=== PATIENT | male | born 1965 | race Caucasian/White ===

== ENCOUNTER 2023-10-11 04:52 | Inpatient (IN) | payer OTHER, SELFPAY ==
[2023-10-11] VITALS (37 sets, daily range): BP systolic 10–126; BP diastolic 51–87; BMI 26.8; BMI 26.7
--- NOTE | 2023-10-11 02:06 | ED.GENMED ---
History of Present Illness
<Lexus Tatum MD - Last Filed: 10/11/23 02:42>
General
Chief Complaint: Abdominal Pain
Source: patient
Exam Limitations: none
Time Seen by Provider: 10/11/23 01:53
Nursing documentation reviewed up to this point in time: agreed with
History of Present Illness
History of Present Illness:
The patient is a pleasant 58-year-old man with a past medical history of diverticulosis who presents with 1 day of diffuse abdominal pain, worse in his lower abdomen, as well as pain in his urethra. Patient reports that he had very similar symptoms
about a month ago when he was admitted to [facility] and treated with IV antibiotics for acute diverticulitis. Patient reports that at that time, he had frequent bladder scans done and very little urine was in his bladder. They were unsure
why he was having urethral symptoms during the course of his acute diverticulitis. Patient reports that about a year ago he had a bout of diverticulitis.
Past History
<Lexus Tatum MD - Last Filed: 10/11/23 02:42>
Past History
ED Past Medical History: Other (Diverticulosis, diverticulitis)
ED Past Surgical History: Orthopedic and Other (Hernia repair)
Social History
Tobacco: Non-smoker
Alcohol: Other
Drug: None
Personal:
Living: with family
Employment: Other
Family History
Family History: Other
Review of Systems
<Lexus Tatum MD - Last Filed: 10/11/23 02:42>
Review of Systems
Allergies reviewed?: Yes
All Other Systems: ROS reviewed and negative except as documented in HPI and ROS
Constitutional: Reports no symptoms
EENT: Reports no symptoms
Respiratory: Reports no symptoms
Cardiac: Reports no symptoms
ABD/GI: Reports abdominal pain and nausea
: Reports dysuria and urgency
Musculoskeletal: Reports no symptoms
Skin: Reports no symptoms
Neurological: Reports no symptoms
Endocrine: Reports no symptoms
Hematologic/Lymphatic: Reports no symptoms
Psychiatric: Reports no symptoms
Phy Exam
<Lexus Tatum MD - Last Filed: 10/11/23 02:42>
Physical Exam
Physical Exam:
Physical Exam
General: Patient appears flushed and uncomfortable but is conversational
Neck: supple. no meningeal signs. normal posterior pharynx
Heart: s1/s2 regular rate and rhythm, no murmur. equal radial pulses.
Lungs: no acute respiratory distress. clear bilaterally
Abdomen: Mildly distended. Diffusely tender. No pulsatile mass.
Neuro: alert and oriented. no focal neurological deficits
Skin: no rash
Psychiatric: well kept. interactive and cooperative
Extremities: no edema. no calf tenderness. negative homans. good distal pulses
Course
<Lexus Tatum MD - Last Filed: 10/11/23 02:42>
Orders/Labs/Results
Orders:
Orders
10/11/23 01:44
Complete Blood Count/With Diff Urgent
Comprehensive Metabolic Panel Urgent
Lipase Urgent
10/11/23 02:05
Urinalysis Reflex To Culture Urgent
Acetaminophen [Tylenol] 1,000 mg PO NOW STA
Morphine Sulfate 4 mg IV NOW STA
Ondansetron Injectable [Zofran] 4 mg IV NOW STA
10/11/23 02:06
0.9% Sodium Chloride 1000 ml [Nss] 1,000 ml IV BOLUS
10/11/23 02:38
CT Abd/pelvis W Iv Cont Urgent
Comment:
Reason For Exam: lower ab pain, urethral spasms
10/11/23 03:17
HYDROmorphone [Dilaudid] 1 mg IV NOW STA
10/11/23 03:21
Piperacillin/Tazo 3.375 Gram [Zosyn] 3.375 gram in 50 ml IV NOW
10/11/23 04:38
Admit/Transfer Patient As Directed
Co-Sign Provider:
Level of Care: Inpatient admission
Assign to:: IMU- Intermediate Care
Physician / Group: Jayden
Diagnosis: Perforated Diverticulitis
Reason for Hospitalization: Perforated Diverticulitis
Expected length of stay greater than two midnights?: Yes
ELOS- Estimated Length of Stay in days: 3
I certify the patient meets the requirements for IP care: Yes
PRN Pain Medication Management As Directed
May give lesser potent ordered pain med per pt: Yes
preference::
Protocol:: Medication orders for pain may be administered in a
manner that supports deferring to patient preference
when the pt is:
- Requesting an ordered lesser potent pain medication.
Least to most potent pain medications are defined
as: acetaminophen < NSAID < tramadol < opioids
(morphine, oxycodone, hydromorphone).
- Requesting a lesser dose of the same medication IF
ORDERED.
- Requesting a less intrusive route of administration
if both routes are prescribed by the provider (PO <
IV).
10/11/23 04:39
Code Status As Directed
Resuscitation Status: Full Code
10/11/23 04:41
HYDROmorphone [Dilaudid] 1 mg IV NOW STA
10/11/23 05:41
0.9% Sodium Chloride 1000 ml [Nss] 1,000 ml IV 150 mls/hr
Acetaminophen [Tylenol] 650 mg PO Q4HPRN PRN
HYDROmorphone [Dilaudid] 0.5 mg IV Q4HPRN PRN
Ondansetron Injectable [Zofran] 4 mg IV Q6HPRN PRN
10/11/23 05:41
SURGICAL CONSULT Urgent
Consulting Provider: Matty Guillen
Was physician already notified: Yes
Reason for consult: Perforated Diverticulitis
Activity As Directed
Activity Level: Ambulate
With Assistance
Bladder Scan As Directed
Follow Bladder Retention/Intermittent Cath Algorithm?: Yes
PRN if no void in __ hours: 6
Frequency: Per Retention Algorithm
If Bladder Scan Result >: 400
then:: Straight cath
I/O [Intake/ Output] As Directed
Frequency: Per unit guidelines
Pneumatic Compression Sleeves As Directed
Type: Knee high
Straight Cath As Directed
Frequency: Per Retention Algorithm
Additional Instructions: straight cath as needed per acute urinary retention algorithm for 24 hrs
Additional Instructions: for bladder scan greater than 400 mL
Vital Signs As Directed
Frequency: Per unit guidelines
Oxygen Therapy [O2 Therapy] [RESP] Routine
Titrate/Wean O2 to maintain O2 sat greater than (%): 94
DX Deep Vein Thrombosis Video Routine
10/11/23 Breakfast
NPO
Allow oral meds: Yes
Allow clear liquids: Sips of Clears
10/11/23 06:06
Basic Metabolic Panel IN AM
Complete Blood Count/No Diff IN AM
10/11/23 08:00
Pantoprazole [Protonix IV] 40 mg IV DAILY
10/11/23 10:00
Piperacillin/Tazo 3.375 Gram [Zosyn] 3.375 gram in 50 ml IV Q6H
Abnormal Lab Results
10/11/23
01:44
WBC 12.7 H 10^3/uL
(4.8-10.8)
MCH 31.1 H pg
(27.0-31.0)
Absolute Neuts (auto) 11.5 H 10^3/uL
(1.4-6.5)
Absolute Lymphs (auto) 0.4 L 10^3/uL
(1.2-3.4)
Absolute Monos (auto) 0.8 H 10^3/uL
(0.1-0.6)
Neutrophils % 90.2 H %
(42.2-75.2)
Lymphocytes % 3.1 L %
(20.5-51.1)
Chloride 108 H mmol/L
(98-107)
Glucose 145 H mg/dl
(70-99)
10/11/23 01:44
10/11/23 01:44
Vital Signs
Initial and Last Documented VS:
Initial Vital Signs
Temp Pulse Resp BP Pulse Ox
100.7 F H 109 20 112/87 98
10/11/23 01:35 10/11/23 01:35 10/11/23 01:35 10/11/23 01:35 10/11/23 01:35
Last Documented Vital Signs
Temp Pulse Resp BP Pulse Ox
100.7 F H 80 13 93/58 93
10/11/23 01:35 10/11/23 06:45 10/11/23 06:45 10/11/23 06:06 10/11/23 06:45
<Noah Sanz, DO - Last Filed: 10/11/23 06:55>
Orders/Labs/Results
Orders:
Orders
10/11/23 01:44
Complete Blood Count/With Diff Urgent
Comprehensive Metabolic Panel Urgent
Lipase Urgent
10/11/23 02:05
Urinalysis Reflex To Culture Urgent
Acetaminophen [Tylenol] 1,000 mg PO NOW STA
Morphine Sulfate 4 mg IV NOW STA
Ondansetron Injectable [Zofran] 4 mg IV NOW STA
10/11/23 02:06
0.9% Sodium Chloride 1000 ml [Nss] 1,000 ml IV BOLUS
10/11/23 02:38
CT Abd/pelvis W Iv Cont Urgent
Comment:
Reason For Exam: lower ab pain, urethral spasms
10/11/23 03:17
HYDROmorphone [Dilaudid] 1 mg IV NOW STA
10/11/23 03:21
Piperacillin/Tazo 3.375 Gram [Zosyn] 3.375 gram in 50 ml IV NOW
10/11/23 04:38
Admit/Transfer Patient As Directed
Co-Sign Provider:
Level of Care: Inpatient admission
Assign to:: IMU- Intermediate Care
Physician / Group: Jayden
Diagnosis: Perforated Diverticulitis
Reason for Hospitalization: Perforated Diverticulitis
Expected length of stay greater than two midnights?: Yes
ELOS- Estimated Length of Stay in days: 3
I certify the patient meets the requirements for IP care: Yes
PRN Pain Medication Management As Directed
May give lesser potent ordered pain med per pt: Yes
preference::
Protocol:: Medication orders for pain may be administered in a
manner that supports deferring to patient preference
when the pt is:
- Requesting an ordered lesser potent pain medication.
Least to most potent pain medications are defined
as: acetaminophen < NSAID < tramadol < opioids
(morphine, oxycodone, hydromorphone).
- Requesting a lesser dose of the same medication IF
ORDERED.
- Requesting a less intrusive route of administration
if both routes are prescribed by the provider (PO <
IV).
10/11/23 04:39
Code Status As Directed
Resuscitation Status: Full Code
10/11/23 04:41
HYDROmorphone [Dilaudid] 1 mg IV NOW STA
10/11/23 05:41
0.9% Sodium Chloride 1000 ml [Nss] 1,000 ml IV 150 mls/hr
Acetaminophen [Tylenol] 650 mg PO Q4HPRN PRN
HYDROmorphone [Dilaudid] 0.5 mg IV Q4HPRN PRN
Ondansetron Injectable [Zofran] 4 mg IV Q6HPRN PRN
10/11/23 05:41
SURGICAL CONSULT Urgent
Consulting Provider: Matty Guillen
Was physician already notified: Yes
Reason for consult: Perforated Diverticulitis
Activity As Directed
Activity Level: Ambulate
With Assistance
Bladder Scan As Directed
Follow Bladder Retention/Intermittent Cath Algorithm?: Yes
PRN if no void in __ hours: 6
Frequency: Per Retention Algorithm
If Bladder Scan Result >: 400
then:: Straight cath
I/O [Intake/ Output] As Directed
Frequency: Per unit guidelines
Pneumatic Compression Sleeves As Directed
Type: Knee high
Straight Cath As Directed
Frequency: Per Retention Algorithm
Additional Instructions: straight cath as needed per acute urinary retention algorithm for 24 hrs
Additional Instructions: for bladder scan greater than 400 mL
Vital Signs As Directed
Frequency: Per unit guidelines
Oxygen Therapy [O2 Therapy] [RESP] Routine
Titrate/Wean O2 to maintain O2 sat greater than (%): 94
DX Deep Vein Thrombosis Video Routine
10/11/23 Breakfast
NPO
Allow oral meds: Yes
Allow clear liquids: Sips of Clears
10/11/23 06:06
Basic Metabolic Panel IN AM
Complete Blood Count/No Diff IN AM
10/11/23 08:00
Pantoprazole [Protonix IV] 40 mg IV DAILY
10/11/23 10:00
Piperacillin/Tazo 3.375 Gram [Zosyn] 3.375 gram in 50 ml IV Q6H
Abnormal Lab Results
10/11/23
01:44
WBC 12.7 H 10^3/uL
(4.8-10.8)
MCH 31.1 H pg
(27.0-31.0)
Absolute Neuts (auto) 11.5 H 10^3/uL
(1.4-6.5)
Absolute Lymphs (auto) 0.4 L 10^3/uL
(1.2-3.4)
Absolute Monos (auto) 0.8 H 10^3/uL
(0.1-0.6)
Neutrophils % 90.2 H %
(42.2-75.2)
Lymphocytes % 3.1 L %
(20.5-51.1)
Chloride 108 H mmol/L
(98-107)
Glucose 145 H mg/dl
(70-99)
10/11/23 01:44
10/11/23 01:44
Vital Signs
Initial and Last Documented VS:
Initial Vital Signs
Temp Pulse Resp BP Pulse Ox
100.7 F H 109 20 112/87 98
10/11/23 01:35 10/11/23 01:35 10/11/23 01:35 10/11/23 01:35 10/11/23 01:35
Last Documented Vital Signs
Temp Pulse Resp BP Pulse Ox
100.7 F H 80 13 93/58 93
10/11/23 01:35 10/11/23 06:45 10/11/23 06:45 10/11/23 06:06 10/11/23 06:45
<Lexus Tatum MD - Last Filed: 10/11/23 02:42>
MDM/Problems Addressed
Differential Diagnosis Includes:
Acute diverticulitis with perforation, acute diverticulitis with abscess, small bowel obstruction, infected kidney stone
MDM/Problems Addressed:
Patient presents with acute abdominal pain, urgency, frequency and fever
Chronic conditions affecting care:
Diverticulosis
Acute Exacerbation and/or Progression of Chronic Illness:
Patient may have acute exacerbation of his diverticulitis given that he has diverticulosis
<Noah Sanz DO - Last Filed: 10/11/23 06:55>
MDM/Problems Addressed
MDM/Problems Addressed:
Patient presents with acute abdominal pain, urgency, frequency and fever
Perforated viscus, acute diverticulitis
<Lexus Tatum MD - Last Filed: 10/11/23 02:42>
*Pulse Oximetry
Patient hypoxic: no
Data Reviewed
Review of Other/Old Records Reveals: Testing (Normal cardiac echo 2020)
Source: patient and spouse
<Noah Sanz DO - Last Filed: 10/11/23 06:55>
*Radiology
Radiology exam reviewed: preliminary read by ED provider (Free air throughout abdomen, perforated diverticulitis suspected)
*Critical Care Note
Total Time (30-74mins, 75-104mins- exclusive of procedures): 40 minutes
<Noah Sanz DO - Last Filed: 10/11/23 06:55>
Patient Management
Discussion with other providers: Telegraph Operator (Case discussed with surgery Dr. Guillen. aware of free peritoneal air.)
Escalation/DeEscalation of care consider admission/obs:
Patient requires IV antibiotics, surgical consultation and admission
<Noah Sanz DO - Last Filed: 10/11/23 06:55>
Update Note
Update Note:
Patient received in signout and reevaluated. CT does show free peritoneal air. On my assessment he does have rebound and diffuse tenderness. Hemodynamically he is stable but febrile. Treated pain control and IV antibiotics. Denies any
allergies. Reports GI upset 20 years ago with amoxicillin.
ED Attending Note
<Lexus Tatum MD - Last Filed: 10/11/23 02:42>
-
Portions of this chart may have been created with voice recognition software.� Occasional wrong word or��sound alike� substitutions may have occurred due to the inherent limitations of voice recognition software.
Discharge Plan
Departure
Patient Disposition: Admit
Date of Disposition: 10/11/23
Time of Disposition: 03:25
Admit to: Med/Surg
Presentation/result/management discussed w/ accepting MD/DO: Hospitalist
Condition: Good
Covid-19: Not Applicable
Discharge Problem:
Perforated abdominal viscus, Acute diverticulitis
Interventions
Interventions:
*Risk Screen - Suicide Last Done: 10/11/23 01:35
*General Assessment Last Done: 10/11/23 01:35
*Neglect/Abuse Screening Last Done: 10/11/23 01:35
ED- Fall Risk Assessment Last Done: 10/11/23 01:35
*ED COVID-19 Vaccine History Last Done: 10/11/23 01:35
*Nursing Disposition Last Done: 10/11/23 05:44
WO-Rbcclu-Kemdtzjiob Assessment Last Done: 10/11/23 01:44
Discharge Date and Time
Discharge Date/Time: 10/11/23 05:45
[2023-10-11 02:15] LABS: % Basophils 0.2 % (0-2); % Eosinophils 0.2 % (0-6); % Immature Granulocytes 0.3 % (0-0.5); % Lymphocytes 3.1 % (20.5-51.1); % Neutrophils 90.2 % (42.2-75.2); Absolute Lymphocytes 0.4 10^3/uL (1.2-3.4); Absolute Monocytes 0.8 10^3/uL (0.1-0.6); Absolute Neutrophils 11.5 10^3/uL (1.4-6.5); Hemoglobin 15.9 g/dL (13.0-18.0); Mean Corpuscular Hgb 31.1 pg (27.0-31.0); Mean Platelet Volume 10.1 fL (7.4-10.4); Nucleated Red Blood Cells % 0 % (-); Platelet Count 192 10^3/uL (130-400); Red Blood Cell Count 5.12 10^6/uL (4.70-6.10); Red Cell Dist. Width 12.5 % (11.5-14.5); White Blood Cell Count 12.7 10^3/uL (4.8-10.8)
[2023-10-11] MEDS: ZOFRAN 4 MG IV (02:19)
[2023-10-11] MEDS: MORPHINE SULFATE 4 MG IV (02:19)
[2023-10-11 02:20] LABS: ALT (SGPT) 34 U/L (0-50); AST (SGOT) 38 U/L (17-59); Albumin 4.3 g/dl (3.5-5.0); Alkaline Phosphatase 53 U/L (38-126); Blood Urea Nitrogen 18 mg/dl (9-20); Calcium 9.5 mg/dl (8.4-10.2); Carbon Dioxide 22 mmol/L (22-30); Chloride 108 mmol/L (98-107); Estimated Creatinine Clearance 85 ml/min; Glucose 145 mg/dl (70-99); Lipase 84 U/L (23-300); Potassium 4.5 mmol/L (3.5-5.1); Sodium 137 mmol/L (135-145); Total Bilirubin 1.3 mg/dl (0.2-1.3); Total Protein 6.7 g/dl (6.3-8.2); eGFR > 60.00
[2023-10-11] MEDS: TYLENOL 1000 MG PO (02:20)
[2023-10-11] MEDS: NSS 1000 IV ×5 (02:21→23:44)
[2023-10-11] MEDS: DILAUDID 1 MG IV ×5 (03:30→23:36)
[2023-10-11] MEDS: ZOSYN 50 IV ×4 (03:31→23:36)
--- NOTE | 2023-10-11 04:41 | HPS.HSE ---
Family Physician
-
Family Physician: Donna Lopez
Chief Complaint
-
Abd Pain
History of Present Illness
Patient is a 58y M with PMH significant for diverticular disease who presents to ED complaining of severe abdominal pain x several hours. Patient states that he was feeling well until he developed sudden onset of severe lower abdominal pain
around noon today. He drove to [place] from [place] and presented to the ED for further evaluation. Patient states that his pain was accompanied by fevers / chills, diaphoresis and nausea. No emesis. No diarrhea, bloody stools, etc.
Patient nots that he was admitted at [facility] in [place] in mid-August for acute diverticulitis. This improved with abx treatment.
Patient also notes that he started taking Metamucil regularly at that time and his bowel movements have been very regular since.
His first episode of diverticulitis was about one year ago. This was treated with PO abx as an outpatient. This is his 3rd episode total.
Patient has no other chronic health issues and takes no daily medications - other than the Metamucil.
Medical History
Past Medical History
Past Medical History: Reports Other
Additional Past Medical History:
Diverticular Disease
Past Surgical History: Reports Other
Additional Past Surgical History:
Right Inguinal Hernia Repair
Umbilical Hernia Repair
Right ACL Repair (x 3)
Social History
Tobacco: Non-smoker
Alcohol: Occasional
Drug: None
Personal:
Living: With Family
Family History
Family History: Other (Colon Cancer, Melanoma)
Allergies / Home Medications
Allergies reflects when Allergies were last updated in [facility].
Home Medications with original date entered in [facility]
Allergy/Medication List:
Allergies
Allergy/AdvReac Type Severity Reaction Status Date / Time
seasonal Allergy Unknown Uncoded 10/11/23 01:34
Home Medications
psyllium 1 packet PO DAILY 10/11/23
Review of Systems
-
History Source: Patient
A 12 point ROS was completed and negative except as noted: Yes
Constitutional: Reports Fever, Fatigue and Chills
EENT: Denies Sore Throat
Respiratory: Denies Cough or Trouble Breathing
Cardiac: Reports Diaphoresis; Denies Chest Pain or Palpitations
Abdomen/GI: Reports Abdominal Pain and Nausea; Denies Vomiting, Diarrhea, Constipated, Bloody Stools or Black Stools
: Denies Dysuria, Frequency or Flank Pain
Musculoskeletal: Denies Joint Pain or Edema
Neurological: Denies Dizzy or Headache
Psych: Denies Depression or Anxiety
Physical Exam
Vital Signs
Vital Signs
Temp Pulse Resp BP Pulse Ox
100.7 F H 97 18 100/64 94
10/11/23 01:35 10/11/23 03:28 10/11/23 03:28 10/11/23 03:28 10/11/23 03:28
Physical Exam
General: Other (58y M in moderate distress due to pain.)
HEENT: Moist mucous membranes and PERRLA
Respiratory: Clear; No Wheezes, Rales or Rhonchi
Cardiac: S1/S2 and Regular Rhythm; No Murmur
GI: Other (Abdomen is somewhat distended. Pos tenderness - mostly along lower abdomen with guarding and rebound tenderness. Bowel sounds are present but diminished.)
Musculoskeletal: No Clubbing, No Cyanosis and No Edema
Neuro: AO x 3
Laboratory Results
-
10/11/23 01:44
10/11/23 01:44
Laboratory Results
Total Bilirubin 1.3 mg/dl (0.2-1.3) 10/11/23 01:44
AST 38 U/L (17-59) 10/11/23 01:44
ALT 34 U/L (0-50) 10/11/23 01:44
Alkaline Phosphatase 53 U/L (38-126) 10/11/23 01:44
Lipase 84 U/L (23-300) 10/11/23 01:44
Impression/Plan
-
A/P: Patient is a 58y M with PMH significant for diverticular disease who presents to ED complaining of abdominal pain since noon.
Acute Sigmoid Diverticulitis with Perforation
Sepsis secondary to the above
- Admit for further evaluation and treatment.
- Patient presents with fever, leukocytosis, tachycardia and imaging / exam evidence for acute diverticulitis.
- NPO, IVFs, IV abx, pain control, etc.
- CT scan done in the ED read by [facility] as diffuse pneumoperitoneum.
- Surgery aware and tentative plan is for OR in the AM.
- Supportive care / pain control pending Surgery evaluation.
- Follow for any new / worsening symptoms.
DVT Prophylaxis: SCDs
Code Status: Full
--- NOTE | 2023-10-11 05:57 | PTCARENOTE ---
Patient arrived from ED, alert and awake, denies nausea. Pain tolerable, 8/10 with movement. Patient sleepy, requesting sips of clears. Remains on RA, good historian, participated in admission.
[2023-10-11 06:36] LABS: Hematocrit 39.7 % (39.0-52.0); Hemoglobin 14.3 g/dL (13.0-18.0); Mean Corpuscular Hgb 31.8 pg (27.0-31.0); Mean Corpuscular Volume 88.4 fL (80.0-94.0); Mean Platelet Volume 9.6 fL (7.4-10.4); Platelet Count 167 10^3/uL (130-400); Red Blood Cell Count 4.49 10^6/uL (4.70-6.10); Red Cell Dist. Width 12.6 % (11.5-14.5); White Blood Cell Count 14.2 10^3/uL (4.8-10.8)
--- NOTE | 2023-10-11 06:38 | CON.GS ---
Medical History
-
Chief Complaint: Abdominal pain
History of Present Illness:
Patient is a 58 yo M with a PMH notable for Evangelical, diverticulitis, s/p laparoscopic RIGHT inguinal hernia repair with mesh and open umbilical hernia repair who presents with 24 hours of lower abdominal pain. Mr. Bundy states that his
symptoms began acutely yesterday afternoon. He reports severe pain which is worse than his prior attacks of diverticulitis. Associated burning with urination. Associated fevers. Denies any nausea or vomiting. Reports continuing to pass looser,
nonbloody stools and flatus. He reports prior episodes of diverticulitis last year as well as approximately 1 month ago. He was managed at [facility] for approximately 3 days. Family history is notable for colon cancer in his uncle and
sister. Of note, his sister had a perforation with partial colectomy and ostomy formation.
Past Medical History
Past Medical History: Other (Diverticulitis)
Past Surgical History: Hernia Repair (Laparoscopic RIGHT inguinal hernia and open umbilical hernia)
Social History
Tobacco: Non-Smoker
Alcohol: Occasional
Drug: None
Personal:
Living: With Family
Employment: Retired
Family History
Family History: Cancer (Colon cancer in uncle and sister)
Allergies / Home Medications
Allergy/AdvReac Type Severity Reaction Status Date / Time
seasonal Allergy Unknown Uncoded 10/11/23 01:34
�Medication �Instructions �Recorded �Confirmed �Type
psyllium 1 packet PO DAILY 10/11/23 10/11/23 History
Review of Systems
-
A 10 point review of systems was completed, and was negative except as per HPI.
Physical Exam
Vital Signs
Temp Pulse Resp BP Pulse Ox
100.7 F H 83 13 93/58 91
10/11/23 01:35 10/11/23 06:15 10/11/23 06:15 10/11/23 06:06 10/11/23 06:15
10/09/23 10/10/23 10/11/23
06:59 06:59 06:59
Actual Weight 86.9 kg
Body Mass Index (BMI) 26.7
Lab Results
10/11/23 06:06
WBC 14.2 10^3/uL (4.8-10.8) H 10/11/23 06:06
Hgb 14.3 g/dL (13.0-18.0) 10/11/23 06:06
Hct 39.7 % (39.0-52.0) 10/11/23 06:06
Plt Count 167 10^3/uL (130-400) 10/11/23 06:06
Abs Immat Gran (auto) 0.0 10^3/uL (0-0.05) 10/11/23 01:44
Neutrophils % 90.2 % (42.2-75.2) H 10/11/23 01:44
Physical Exam
General: Well Developed, Well Nourished and Pain
HEENT: Normocephalic and Anicteric
GI: Soft, Tender (Lower abdomen), Distended, Incisions (Well-healed) and Other (Peritoneal (rebound and guarding))
Musculoskeletal: No Edema
Skin: Warm and Dry
Neuro: Nonfocal/Grossly Intact
Data Reviewed
-
CT Scan: Image Personally Visualized and interpreted and Report Reviewed by me
Labs: Labs Reviewed by me
Old Records: Reviewed
Assessment / Plan
-
Patient is a 58 yo M p/w perforated diverticulitis with free air
CT scan imaging was reviewed and demonstrates severe sigmoid diverticulitis with associated perforation and scattered free air throughout the abdomen, no significant fluid. The natural history and pathophysiology of diverticulitis was briefly
reviewed. Options for management including a trial of medical management with bowel rest and antibiotics versus surgical management were considered and discussed. The pros and cons of both approaches was discussed. Given his degree of pain,
softer blood pressures, and presence of free air recommend surgical intervention. Patient agrees and is willing to proceed.
Plan for an exploratory laparotomy, partial colectomy, and ostomy formation (Haywood's procedure). The procedure itself, as well as the risks, benefits, and alternatives was discussed. Specifically, we discussed the risks of bleeding, infection,
injury to surrounding structures (bowel, bladder, ureters), deep space abscess formation, skin and soft tissue infections, hernia formation, and general anesthetic complications. Typical postprocedural recovery was discussed. All questions
answered. Consent signed.
Of note, patient is a Evangelical and refuses all blood products. He states that he would not want a transfusion under any circumstances including .
-- Exploratory laparotomy, partial colectomy, and ostomy formation (Haywood's procedure)
-- NPO, IVF
-- Antibiotics: Zosyn
--- NOTE | 2023-10-11 06:46 | W.SUR.PREOP ---
Pre-Operative Surgical Note
-
I have examined this patient prior to the performance of the scheduled procedure.
The patient's condition is unchanged from the time of the current History and
Physical and the patient is able to undergo the scheduled procedure.
[2023-10-11 07:39] LABS: Blood Urea Nitrogen 17 mg/dl (9-20); Calcium 8.6 mg/dl (8.4-10.2); Carbon Dioxide 22 mmol/L (22-30); Chloride 108 mmol/L (98-107); Estimated Creatinine Clearance 85 ml/min; Glucose 119 mg/dl (70-99); Potassium 4.5 mmol/L (3.5-5.1); Sodium 136 mmol/L (135-145); eGFR > 60.00
--- NOTE | 2023-10-11 07:39 | W.PN.HOSP.TC ---
Today's Communication/Plan
-
IVF
abx
pain control
wound ostomy drain care NPO NGT as per surgery
Assessment / Plan
Assessment / Plan
Physical Exam
General: sedated appears comfortable at this time
HEENT: Moist mucous membranes and PERRLA NGT in place
Respiratory: Clear; No Wheezes, Rales or Rhonchi
Cardiac: S1/S2 and Regular Rhythm; No Murmur
GI: Ostomy in place, CHRISTOPHE drain, tender, decreased bowel sounds
Musculoskeletal: No Clubbing, No Cyanosis and No Edema
Neuro: Sedated but arousable
A/P: Patient is a 58y M with PMH significant for diverticular disease who presents to ED complaining of abdominal pain since noon.
Acute Sigmoid Diverticulitis with Perforation
Sepsis secondary to the above
- Patient presents with fever, leukocytosis, tachycardia and imaging / exam evidence for acute diverticulitis.
- NPO, IVF support, IV abx, pain control
- CT appreciated acute diverticulitis w/ perforation
- Surgery eval appreciated Status post Exploratory laparotomy, partial colectomy (sigmoidectomy), end colostomy (Haywood's procedure)
- Levophed prn goal SBP>90
DVT Prophylaxis: SCDs
Code Status: Full
I spent a total of 55 minutes with the patient or on the floor. More than 50% of this time involved counseling and coordination of care.
Anticipated Discharge: > 48 hours
Subjective/Interval History
-
Date of Service: October 11, 2023
Status post Exploratory laparotomy, partial colectomy (sigmoidectomy), end colostomy (Haywood's procedure). Sedated but arousable. Reporting abd pain post-procedure, not unexpected. Ebonie (akana Owusu) present during evaluation.
Objective Data
-
Labs:
Laboratory Results
10/11/23 10/11/23
01:44 06:06
WBC 12.7 H 14.2 H
Hgb 15.9 14.3
Hct 43.0 39.7
Plt Count 192 167
Sodium 137 136
Potassium 4.5 4.5
Chloride 108 H 108 H
Carbon Dioxide 22 22
BUN 18 17
Creatinine 1.0 1.0
Glucose 145 H 119 H
Calcium 9.5 8.6
Total Bilirubin 1.3
AST 38
ALT 34
Alkaline Phosphatase 53
Vital Signs:
Vital Signs
Temp Pulse Resp BP Pulse Ox
100.7 F H 80 13 93/58 93
10/11/23 01:35 10/11/23 06:45 10/11/23 06:45 10/11/23 06:06 10/11/23 06:45
I&O
10/10/23 10/11/23 10/12/23
06:59 06:59 06:59
Intake Total 150 / 150
Balance 150 / 150
--- NOTE | 2023-10-11 10:58 | W.IMMPOSTOP ---
Addendum entered and electronically signed by Matty Guillen MD 10/11/23 14:23:
[facility]# [id number]
Original Note:
Surgical Immed Post Op Note
-
Primary Surgeon: Wilmer
Assisting Surgeon: MAGNUS Clancy
Pre-op Diagnosis: Perforated diverticulitis
Post-op Diagnosis: Perforated diverticulitis
Procedure Performed: Exploratory laparotomy, partial colectomy (sigmoidectomy), end colostomy (Haywood's procedure)
Anesthesia Type: General
Specimen / Cultures:
1. Sigmoid colon
Estimated Blood Loss: 11 cc
Complications: None
Operative Findings:
1. Severely inflamed and thickened sigmoid colon, perforation with leakage of stool, localize purulence
2. Partial colectomy with healthy bowel proximal and rectum distal
3. End colostomy in Svitlana fashion
4. Blanco, NGT, 19 Fr CHRISTOPHE drain into pelvis and LLQ
[2023-10-11] MEDS: OFIRMEV 100 IV ×3 (11:30→23:36)
[2023-10-11] MEDS: PROTONIX IV 40 MG IV (11:31)
--- NOTE | 2023-10-11 12:31 | PTCARENOTE ---
Addendum entered by Liam Jones RN 10/11/23 15:07:
NGT pulled back 5cm to 65cm ghazal per MD order. Low int suction restarted.
Original Note:
Patient returned from PACU by bed. VSS, soft BPs. IV fluids restarted as ordered. CHRISTOPHE with serosanginous drainage, midline abdominal dressing with small areas of shadowing which are outlined with marker. Colostomy CDI with no drainage, stoma pink. 4L
NC, sats 96%. Patient drowsy but arousable, resting. NGT to low int sx as ordered. SCDs on. Blanco with cloudy yellow drainage. at bedside and updated. Call ramos in reach. Continuing to closely monitor patient.
[2023-10-11 14:29] LABS: Urine Albumin Trace (Neg - Trace); Urine Bilirubin 1+ (Negative); Urine Character Very Cloudy (Clear); Urine Color Straw; Urine Glucose Negative (Negative); Urine Ketone Trace (Negative); Urine Leukocyte Negative (Negative); Urine Nitrite Negative (Negative); Urine Occult Blood 4+ (Negative); Urine Specific Gravity 1.025 (<1.030); Urine Urobilinogen 2+ (Neg - 1+)
[2023-10-11 14:50] LABS: Urine Amorphous Seen; Urine Squamous Cell 0-2 /LPF (Few)
[2023-10-11 14:51] LABS: Urine Red Blood Cell 16-20 /HPF (0-2); Urine White Cell 0-2 /HPF (0-5)
[2023-10-11] MEDS: TORADOL 10 MG IV ×2 (18:03→23:44)
--- NOTE | 2023-10-11 19:30 | PTCARENOTE ---
aaox3. nsr, vss. l ng tube intact. draining brown/green. aquacel to abdomen cdi. nss @ 125. dilaudid admin for pain. pt updated on plan of care. will monitor.
[2023-10-11] MEDS: DILAUDID 0.5 MG IV (19:56)
[2023-10-12] VITALS (13 sets, daily range): BP systolic 86–122; BP diastolic 58–82; BMI 27.6
[2023-10-12 04:28] LABS: % Basophils 0.2 % (0-2); % Eosinophils 0.6 % (0-6); % Immature Granulocytes 0.6 % (0-0.5); % Lymphocytes 7.7 % (20.5-51.1); % Monocytes 5.6 % (1.7-9.3); % Neutrophils 85.3 % (42.2-75.2); Absolute Eosinophils 0.1 10^3/uL (0-0.7); Absolute Immature Granulocytes 0.1 10^3/uL (0-0.05); Absolute Lymphocytes 0.7 10^3/uL (1.2-3.4); Absolute Monocytes 0.5 10^3/uL (0.1-0.6); Absolute Neutrophils 7.6 10^3/uL (1.4-6.5); Hematocrit 35.6 % (39.0-52.0); Hemoglobin 12.5 g/dL (13.0-18.0); Mean Corp Hgb Conc. 35.1 g/dL (33.0-37.0); Mean Corpuscular Hgb 30.9 pg (27.0-31.0); Mean Corpuscular Volume 87.9 fL (80.0-94.0); Mean Platelet Volume 9.5 fL (7.4-10.4); Nucleated Red Blood Cells % 0 % (-); Platelet Count 140 10^3/uL (130-400); Red Blood Cell Count 4.05 10^6/uL (4.70-6.10); Red Cell Dist. Width 13.1 % (11.5-14.5); White Blood Cell Count 8.9 10^3/uL (4.8-10.8)
[2023-10-12] MEDS: ZOSYN 50 IV ×4 (04:32→23:00)
[2023-10-12] MEDS: OFIRMEV 100 IV ×3 (04:33→18:10)
[2023-10-12] MEDS: DILAUDID 0.5 MG IV ×5 (04:42→23:14)
[2023-10-12 04:43] LABS: Blood Urea Nitrogen 19 mg/dl (9-20); Calcium 7.9 mg/dl (8.4-10.2); Carbon Dioxide 26 mmol/L (22-30); Chloride 108 mmol/L (98-107); Estimated Creatinine Clearance 85 ml/min; Glucose 109 mg/dl (70-99); Potassium 4.3 mmol/L (3.5-5.1); Sodium 135 mmol/L (135-145); eGFR > 60.00
--- NOTE | 2023-10-12 07:19 | W.PN.HOSP.TC ---
Today's Communication/Plan
-
IVF
abx
pain control
wound ostomy drain care NPO NGT as per surgery
Replete Calcium
Assessment / Plan
Assessment / Plan
Physical Exam
General: sedated appears comfortable at this time
HEENT: Moist mucous membranes and PERRLA NGT in place
Respiratory: Clear; No Wheezes, Rales or Rhonchi
Cardiac: S1/S2 and Regular Rhythm; No Murmur
GI: Ostomy in place, CHRISTOPHE drain, tender, decreased bowel sounds
Musculoskeletal: No Clubbing, No Cyanosis and No Edema
Neuro: Sedated but arousable Coherent conversant
A/P: Patient is a 58y M with PMH significant for diverticular disease who presents to ED complaining of abdominal pain since noon.
Acute Sigmoid Diverticulitis with Perforation
Sepsis secondary to the above
- Patient presents with fever, leukocytosis, tachycardia and imaging / exam evidence for acute diverticulitis.
- NPO, IVF support, IV abx, pain control
- CT appreciated acute diverticulitis w/ perforation
- Surgery eval appreciated Status post Exploratory laparotomy, partial colectomy (sigmoidectomy), end colostomy (Haywood's procedure)
- Levophed prn goal SBP>90 (has not required)
Hypocalcemia
-monitor and replete as necessary
DVT Prophylaxis: SCDs
Code Status: Full
I spent a total of 55 minutes with the patient or on the floor. More than 50% of this time involved counseling and coordination of care.
Anticipated Discharge: > 48 hours
Subjective/Interval History
-
Date of Service: October 12, 2023
Reports abd pain controlled with current pain regimen. Denies Flatus.
Objective Data
-
Labs:
Laboratory Results
10/12/23
04:18
WBC 8.9
Hgb 12.5 L
Hct 35.6 L
Plt Count 140
Sodium 135
Potassium 4.3
Chloride 108 H
Carbon Dioxide 26
BUN 19
Creatinine 1.0
Glucose 109 H
Calcium 7.9 L
Vital Signs:
Vital Signs
Temp Pulse Resp BP Pulse Ox
98.3 F 73 14 100/67 99
10/12/23 03:37 10/12/23 04:15 10/12/23 04:15 10/12/23 04:00 10/12/23 04:15
I&O
10/11/23 10/12/23 10/13/23
06:59 06:59 06:59
Intake Total 150 / 150 1750 / 1750
Output Total 1120 / 1120
Balance 150 / 150 630 / 630
[2023-10-12] MEDS: PROTONIX IV 40 MG IV (08:39)
[2023-10-12] MEDS: NSS 1000 IV ×2 (08:39→18:08)
[2023-10-12] MEDS: TORADOL 10 MG IV ×2 (08:53→18:09)
[2023-10-12] MEDS: CALCIUM GLUCONATE 100 IV (08:54)
[2023-10-12] MEDS: DILAUDID 1 MG IV (09:46)
--- NOTE | 2023-10-12 12:56 | W.PN.GS2 ---
Today's Communication / Plan
-
-- No major changes
Assessment / Plan
-
Patient is a 58 yo M POD#1 s/p Haywood's procedure for perforated diverticulitis
AVSS. Clinically stable. Recovering well. No major postoperative concerns.
-- NPO, IVF, NGT decompression
-- Pain control: IV Tylenol, Toradol, and IV Dilaudid
-- Abx: Zosyn
-- DVT: Lovenox
-- GI: PPI
-- Ostomy consult
Subjective Data
-
Date of Service: October 12, 2023
Reports abdominal soreness particular with coughing. No nausea or vomiting. No flatus or BM via ostomy. Afebrile.
Objective Data
-
Intake and Output
10/11/23 10/12/23 10/13/23
06:59 06:59 06:59
Intake Total 150 / 150 1750 / 1750 40 / 40
Output Total 1120 / 1120
Balance 150 / 150 630 / 630 40 / 40
Intake:
IV fluids (Total) 150 / 150 1650 / 1650
normosol 150 / 150
IV piggybacks 100 / 100
Amount instilled into GI Tube ( 0 / 0 40 / 40
Total)
[place]isa Sump 0 / 0 40 / 40
Output:
Drain Output (Total) 105 / 105
Right Lower Abdomen Iban- 105 / 105
Aguilar
Gastrointestinal tube output ( 0 / 0
Total)
[place] Sump 0 / 0
Urine, Blanco 1015 / 1015
Vital Signs
Temp Pulse Resp BP Pulse Ox
98.3 F 69 13 116/76 95
10/12/23 11:10 10/12/23 10:00 10/12/23 10:00 10/12/23 10:00 10/12/23 10:00
Lab Results
10/12/23 04:18
10/12/23 04:18
Calcium 7.9 mg/dl (8.4-10.2) L 10/12/23 04:18
Total Bilirubin 1.3 mg/dl (0.2-1.3) 10/11/23 01:44
AST 38 U/L (17-59) 10/11/23 01:44
ALT 34 U/L (0-50) 10/11/23 01:44
Alkaline Phosphatase 53 U/L (38-126) 10/11/23 01:44
Total Protein 6.7 g/dl (6.3-8.2) 10/11/23 01:44
Albumin 4.3 g/dl (3.5-5.0) 10/11/23 01:44
Physical Exam
-
Gen: NAD
HEENT: light bilious output
Abd: soft, tender to palpation, ND, non-peritoneal, midline dressing c/d/i, CHRISTOPHE serosang, ostomy PPV - no flatus or BM
--- NOTE | 2023-10-12 20:35 | PTCARENOTE ---
metal framer, pt aaox3, SR HR 70s, RA Sat 95%. c/o 8/10 lower abd pain and discomfort at bernal site- prn dilaudid given per MAY. RH & RAC IV flushed and patent- NSS infusing as ordered. R CHRISTOPHE drain WNL, OTTONIEL with aquacel intact with small area of
shadowing marked. R NGT flushed, minimal bilious output noted. L colostomy with stoma WNL- scant amt liquid drainage in bag. Bernal draining adequate yellow/orange urine. POC discussed, call ramos with patient.
[2023-10-12] MEDS: ZOFRAN 4 MG IV (21:00)
[2023-10-13] VITALS (12 sets, daily range): BP systolic 112–140; BP diastolic 75–90; BMI 28.2
[2023-10-13] MEDS: OFIRMEV 100 IV ×2 (00:45→05:52)
[2023-10-13] MEDS: TORADOL 10 MG IV ×2 (00:49→11:36)
[2023-10-13] MEDS: NSS 1000 IV ×3 (03:33→22:13)
[2023-10-13] MEDS: ZOSYN 50 IV ×4 (03:35→22:13)
[2023-10-13] MEDS: DILAUDID 0.5 MG IV ×4 (03:36→11:03)
[2023-10-13] MEDS: ZOFRAN 4 MG IV (03:38)
[2023-10-13 04:07] LABS: Hematocrit 36.5 % (39.0-52.0); Hemoglobin 13.1 g/dL (13.0-18.0); Mean Corp Hgb Conc. 35.9 g/dL (33.0-37.0); Mean Corpuscular Hgb 31.1 pg (27.0-31.0); Mean Corpuscular Volume 86.7 fL (80.0-94.0); Mean Platelet Volume 9.5 fL (7.4-10.4); Platelet Count 162 10^3/uL (130-400); Red Blood Cell Count 4.21 10^6/uL (4.70-6.10); Red Cell Dist. Width 12.5 % (11.5-14.5); White Blood Cell Count 7.9 10^3/uL (4.8-10.8)
[2023-10-13 04:34] LABS: ALT (SGPT) 21 U/L (0-50); AST (SGOT) 25 U/L (17-59); Albumin 2.8 g/dl (3.5-5.0); Alkaline Phosphatase 59 U/L (38-126); Blood Urea Nitrogen 17 mg/dl (9-20); Calcium 8.5 mg/dl (8.4-10.2); Carbon Dioxide 22 mmol/L (22-30); Chloride 109 mmol/L (98-107); Estimated Creatinine Clearance 94 ml/min; Glucose 79 mg/dl (70-99); Magnesium 1.9 mg/dl (1.6-2.3); Phosphorus 2.4 mg/dl (2.5-4.5); Sodium 136 mmol/L (135-145); Total Protein 5.1 g/dl (6.3-8.2); eGFR > 60.00
--- NOTE | 2023-10-13 05:17 | PTCARENOTE ---
prn pain meds overnight per MAR, no further changes in assessment.
[2023-10-13] MEDS: PROTONIX IV 40 MG IV (08:44)
--- NOTE | 2023-10-13 10:33 | W.PN.GS2 ---
Today's Communication / Plan
-
NG tube removed.
Assessment / Plan
-
Patient is a 58 yo M POD#2 s/p Haywood's procedure for perforated diverticulitis
AVSS. Clinically stable. Recovering well. No major postoperative concerns.
-- NPO, okay for sips and chips and oral meds, IV fluids
-- Pain control: IV Tylenol, Toradol, and IV Dilaudid
-- Abx: Zosyn
-- DVT: Lovenox ordered
-- GI: PPI
-- Ostomy consult
Time Spent
Total Time Spent with Patient (in minutes): 25
Subjective Data
-
Date of Service: October 13, 2023
Interval Events:
No acute events overnight. Slept well. Pain Controlled. Denies Nausea/Vomiting, + ostomy function. Tolerating diet.
Objective Data
-
Intake and Output
24 10/13/23/
06:59 06:59 06:59
Intake Total 1750 / 1750 1625 / 1625
Output Total 1120 / 1120 1113 / 1113 30 / 30
Balance 630 / 630 512 / 512 -30 / -30
Intake:
IV fluids (Total) 1650 / 1650 1125 / 1125
normosol 150 / 150
IV piggybacks 100 / 100 400 / 400
Amount instilled into GI Tube ( 0 / 0 100 / 100
Total)
[place] Sump 0 / 0 100 / 100
Output:
Drain Output (Total) 105 / 105 43 / 43 30 / 30
Right Lower Abdomen Iban- 105 / 105 43 / 43 30 / 30
Aguilar
Gastrointestinal tube output ( 0 / 0 120 / 120
Total)
[place]ce Sump 0 / 0 120 / 120
Urine, Blanco 1015 / 1015 950 / 950
Vital Signs
Temp Pulse Resp BP Pulse Ox
98.2 F 74 12 119/82 94
10/13/23 08:00 10/13/23 08:00 10/13/23 08:00 10/13/23 08:00 10/13/23 09:27
Lab Results
10/13/23 03:55
10/13/23 03:54
Calcium 8.5 mg/dl (8.4-10.2) 10/13/23 03:54
Phosphorus 2.4 mg/dl (2.5-4.5) L 10/13/23 03:54
Magnesium 1.9 mg/dl (1.6-2.3) 10/13/23 03:54
Total Bilirubin 1.0 mg/dl (0.2-1.3) 10/13/23 03:54
AST 25 U/L (17-59) 10/13/23 03:54
ALT 21 U/L (0-50) 10/13/23 03:54
Alkaline Phosphatase 59 U/L (38-126) 10/13/23 03:54
Total Protein 5.1 g/dl (6.3-8.2) L D 10/13/23 03:54
Albumin 2.8 g/dl (3.5-5.0) L D 10/13/23 03:54
Physical Exam
-
GENERAL/NEURO: Awake, Alert, no distress
CHEST: Unlabored breathing on RA
ABDOMEN: Soft, Non-Tender, Non-Distended, CHRISTOPHE serosanguineous, NG tube with gastric contents in the tubing. Minimal output. NG tube was removed at bedside.Ostomy is pink patent and productive of bowel sweat and some gas.
--- NOTE | 2023-10-13 12:54 | CM ---
CM met with pt, spouse, sister and niece
Pt and spouse reside in a [address] with 5 [address], full flight to 2nd floor (13 steps)
Pt notes independence with his ADLs, denies use of DMEs
He is retired and no longer working
No financial insecurities
PCP- Donna Lopez
Rx- [facility]/[place]
POD#2 partial colectomy with new ostomy
Plan for [facility] bedside teaching with [facility] nurse tomorrow afternoon
Spouse and sister will be available at that time for teaching as well
Of note, per sister, recently with her own ostomy and can provide support to pt and spouse
Per nursing, pt has been on bed rest and not out of bed
Monitor out of bed activity and possible need for VN/PT and OT evals
Pt notes he is open to VN if needed
Discharge Disposition- home with new ostomy, watch for VN needs
[2023-10-13] MEDS: DILAUDID 1 MG IV ×4 (13:05→20:14)
--- NOTE | 2023-10-13 13:31 | PTCARENOTE ---
Pt presents as assessed. NSR on tele monitor. NGT removed by surgery. Midline aquacell in place with shadow of drainage, spread slightly past marking- Dr. Troy notified. Stoma red and budded. CHRISTOPHE with serosanguineous output. Pt medicated with PRN
Dilaudid and Toradol. Pt then c/o excruciating pain, reports he feels his bladder is full and may have been straining in attempt to urinate. Attempted bladder scan, difficult to obtain accurate reading d/t surgical dressings. Dr. Troy and
Cira notified, verbal order received for one time straight cath with 500ml drained. Pt verbalized immediate relief.
--- NOTE | 2023-10-13 16:44 | W.PN.HOSP.TC ---
Today's Communication/Plan
-
N.p.o. awaiting return of bowel function
IV antibiotics
IV fluids per
Blanco catheter removed, monitor for retention.
DVT prophylaxis
Assessment / Plan
Assessment / Plan
A/P: Patient is a 58y M with PMH significant for diverticular disease who presents to ED complaining of abdominal pain since noon.
Acute Sigmoid Diverticulitis with Perforation
Sepsis secondary to the above
- CT appreciated acute diverticulitis w/ perforation
- Surgery eval appreciated Status post Exploratory laparotomy, partial colectomy (sigmoidectomy), end colostomy (Haywood's procedure) on 10/10.
IV antibiotics per
N.p.o. awaiting return of bowel function.
Has been off pressors
Blanco catheter removed, monitor for retention.
Hypocalcemia
-monitor and replete as necessary
DVT Prophylaxis: SCDs
Code Status: Full
Anticipated Discharge: 24 - 48 hours
Subjective/Interval History
-
Date of Service: October 13, 2023
Objective Data
-
Vital Signs:
Vital Signs
Temp Pulse Resp BP Pulse Ox
98.4 F 78 15 112/77 94
10/13/23 11:42 10/13/23 16:00 10/13/23 16:00 10/13/23 16:00 10/13/23 16:00
I&O
10/12/23 10/13/23 10/14/23
06:59 06:59 06:59
Intake Total 1750 / 1750 1625 / 1625
Output Total 1120 / 1120 1113 / 1113 530 / 530
Balance 630 / 630 512 / 512 -530 / -530
Physical Exam
-
General: Well Developed and No Apparent Distress
HEENT: Normocephalic, Atraumatic and Moist Mucous Membranes
Respiratory: Clear to Auscultation
Cardiac: Regular Rhythm and S1/S2; Negative Murmur, Rub or Gallop
GI: Soft, Nontender, Nondistended, Normal Bowel Sounds and Ostomy; Negative Organomegaly
Rectal: Deferred by Provider
Musculoskeletal: No Clubbing, No Cyanosis and No Edema
Skin: Negative Rash
Neuro: Nonfocal/Grossly Intact
[2023-10-13] MEDS: LOVENOX 40 MG SC (18:05)
--- NOTE | 2023-10-13 20:47 | PTCARENOTE ---
Pt reports excruciating pain, diaphoretic, tremulous. Reports urge to void, but unable, and increasing pressure in abdomen. BS >400. Order obtained to st cath. Pt medicated with diluadid per MAY. St cath output 510ml. Pt reports excruciating pain
during procedure, but relief once bladder is emptied. BS present in all Qs. Hygiene care provided. NSR, VSS
[2023-10-14] VITALS (14 sets, daily range): BP systolic 122–156; BP diastolic 62–100; PULSE 72; O2SAT 72–95; BMI 29.6
[2023-10-14] MEDS: DILAUDID 1 MG IV ×8 (00:28→23:11)
[2023-10-14] MEDS: ZOSYN 50 IV ×4 (03:16→23:11)
--- NOTE | 2023-10-14 04:41 | PTCARENOTE ---
Pt desat to 87% on RA while sleeping. This RN placed 2L NC with improvement to 96%
[2023-10-14] MEDS: TORADOL 10 MG IV (05:02)
[2023-10-14 05:47] LABS: % Basophils 0.5 % (0-2); % Eosinophils 4.1 % (0-6); % Immature Granulocytes 0.3 % (0-0.5); % Lymphocytes 9.2 % (20.5-51.1); % Monocytes 7.6 % (1.7-9.3); % Neutrophils 78.3 % (42.2-75.2); Absolute Eosinophils 0.3 10^3/uL (0-0.7); Absolute Lymphocytes 0.6 10^3/uL (1.2-3.4); Absolute Monocytes 0.5 10^3/uL (0.1-0.6); Absolute Neutrophils 4.8 10^3/uL (1.4-6.5); Hematocrit 36.5 % (39.0-52.0); Mean Corp Hgb Conc. 35.6 g/dL (33.0-37.0); Mean Corpuscular Hgb 30.9 pg (27.0-31.0); Mean Corpuscular Volume 86.7 fL (80.0-94.0); Mean Platelet Volume 9.5 fL (7.4-10.4); Nucleated Red Blood Cells % 0 % (-); Platelet Count 213 10^3/uL (130-400); Red Blood Cell Count 4.21 10^6/uL (4.70-6.10); Red Cell Dist. Width 12.1 % (11.5-14.5); White Blood Cell Count 6.1 10^3/uL (4.8-10.8)
[2023-10-14 05:51] LABS: ALT (SGPT) 17 U/L (0-50); AST (SGOT) 22 U/L (17-59); Alkaline Phosphatase 62 U/L (38-126); Blood Urea Nitrogen 12 mg/dl (9-20); Calcium 8.9 mg/dl (8.4-10.2); Carbon Dioxide 22 mmol/L (22-30); Chloride 109 mmol/L (98-107); Estimated Creatinine Clearance 85 ml/min; Glucose 91 mg/dl (70-99); Magnesium 1.7 mg/dl (1.6-2.3); Phosphorus 3.1 mg/dl (2.5-4.5); Sodium 137 mmol/L (135-145); Total Bilirubin 0.9 mg/dl (0.2-1.3); Total Protein 5.2 g/dl (6.3-8.2); eGFR > 60.00
[2023-10-14] MEDS: DILAUDID 0.5 MG IV (07:45)
[2023-10-14] MEDS: PROTONIX IV 40 MG IV (07:45)
--- NOTE | 2023-10-14 09:36 | W.PN.GS2 ---
Addendum entered and electronically signed by Matty Guillen MD 10/14/23 15:01:
Peritonitis
Original Note:
Today's Communication / Plan
-
-- Trial of clears
-- mIVF
-- Pain control: Tylenol josiah, Toradol, Tramadol, and IV Dilaudid
-- Replace Blanco if continue issues with retention, Flomax ordered
Assessment / Plan
-
Patient is a 58 yo M POD#3 s/p Haywood's procedure for perforated diverticulitis
AVSS. Clinically stable. Recovering well.
Postoperative issues with urinary retention, recommend replacing Blanco and bowel rest/decompression for a period of time. Will start Flomax.
-- Trial of clears
-- mIVF
-- Pain control: Tylenol josiah, Toradol, Tramadol, and IV Dilaudid
-- Abx: Zosyn
-- DVT: Lovenox ordered
-- GI: PPI
-- Ostomy consult
-- Replace Blanco if continue issues with retention, Flomax ordered
-- OK for tx to floors
Subjective Data
-
Date of Service: October 14, 2023
Issues with urinary retention post Blanco removal; straight cath x2, volumes ~500 cc, minimal blood. Incisional pain has improved. No nausea or vomiting. No fevers. Passing flatus via ostomy. No ambulation or time out of bed.
Objective Data
-
Intake and Output
10/13/23 10/14/23 10/15/23
06:59 06:59 06:59
Intake Total 1625 / 1625
Output Total 1113 / 1113 1775 / 1775 150 / 150
Balance 512 / 512 -1775 / -1775 -150 / -150
Intake:
IV fluids (Total) 1125 / 1125
IV piggybacks 400 / 400
Amount instilled into GI Tube ( 100 / 100
Total)
[place] Sump 100 / 100
Output:
Liquid stool amount 5 / 5
Colostomy 5 /
Drain Output (Total)
Right Lower Abdomen Iban-
Aguilar
Gastrointestinal tube output ( 120 / 120
Total)
[place] Sump 120 / 120
Urine, Blanco 950 / 950
Urine, Voided 200 / 200 150 / 150
Straight cath output 1510 / 1510
Vital Signs
Temp Pulse Resp BP Pulse Ox
98.1 F 79 16 122/73 97
10/14/23 07:03 10/14/23 04:00 10/14/23 04:00 10/14/23 04:00 10/14/23 07:57
Lab Results
10/14/23 04:56
10/14/23 04:56
Calcium 8.9 mg/dl (8.4-10.2) 10/14/23 04:56
Phosphorus 3.1 mg/dl (2.5-4.5) 10/14/23 04:56
Magnesium 1.7 mg/dl (1.6-2.3) 10/14/23 04:56
Total Bilirubin 0.9 mg/dl (0.2-1.3) 10/14/23 04:56
AST 22 U/L (17-59) 10/14/23 04:56
ALT 17 U/L (0-50) 10/14/23 04:56
Alkaline Phosphatase 62 U/L (38-126) 10/14/23 04:56
Total Protein 5.2 g/dl (6.3-8.2) L 10/14/23 04:56
Albumin 3.0 g/dl (3.5-5.0) L 10/14/23 04:56
Physical Exam
-
Gen: NAD
Abd: soft, mild tenderness to palpation, ND, non-peritoneal, midline with some shadowing, CHRISTOPHE serosang, ostomy PPV - flatus, bowel sweat, no stool
[2023-10-14] MEDS: FLOMAX 0.4 MG PO (10:13)
[2023-10-14] MEDS: NSS IV (10:13)
[2023-10-14] MEDS: TYLENOL 650 MG PO ×3 (10:13→23:11)
--- NOTE | 2023-10-14 10:25 | PN.CDI ---
CDI
- -
CDI:
Physician Documentation Request
Admit Date: 10/11/23 04:52
Dear Doctor Wilmer,
Clinical Indicators:
Patient admitted with Sepsis due to Acute Sigmoid Diverticulitis with Perforation; s/p Haywood's procedure 10/10.
10/10 Surgical consult, Physical Exam:(Peritoneal (rebound and guarding)
Operative Findings, 'Severely inflamed and thickened sigmoid colon, perforation with leakage of stool, localized purulence.'
IV antibiotics ordered: Zosyn IV q 6h
Based on the above, could you clarify in the progress notes, the appropriate diagnosis, if significant, that supports the above abnormalities and additional evaluation, monitoring and/or treatment rendered:
Peritonitis
Localized purulence only
Other, please specify
Use of terms such as suspected, likely, concern for, or probable (associated with a specific diagnosis that is being evaluated, monitored, or treated as if it exists) are acceptable and can be coded in the inpatient setting, when documented at the
time of discharge.
Thank you,
Kerry Jackson RN BSN
CDI Specialist
available via tiger text
Please use your independent medical judgment in providing your response.
[2023-10-14] MEDS: D5/0.45%NSS with KCL 20 MEQ 1000 IV ×2 (11:13→23:12)
--- NOTE | 2023-10-14 14:48 | CM ---
Patient who is s/p Haywood's procedure for perforated diverticulitis. Receiving IVF, IV Abx. Clear liquids. Blanco out however needed straight cath. WOC Nurse/Ostomy Consult pending. PT recommends HH. NO OT needs.
Met with patient and Ebonie;
is hoping to meet with ostomy nurse tomorrow afternoon for teaching - sent message to Rosalind Ostomy Nurse in this regard.
Offered VN for continued ostomy care & teaching at home; patient and agree and chose [facility]. Patient doesn't think he will need PT at home.
Referral to [facility] Liaison.
Plan home with [facility].
--- NOTE | 2023-10-14 15:03 | VNURNOTE ---
Home Health Liaison met with patient and at bedside to discuss [facility] nurse, visits, schedule and homebound status. Patient is agreeable and understands that visits at home will be 1-3 x per week to assess and teach medical management and
colostomy care. Per HORACIO Multani, patient was declining home PT. [facility] brochure provided with contact information. Patient is aware that [facility] will contact them for start of care in 1-2 days after discharge from . [facility] referral completed in [facility].
--- NOTE | 2023-10-14 17:37 | W.PN.HOSP.TC ---
Today's Communication/Plan
-
Clear liquid diet
Monitor for retention
Antibiotics
Increase activity/physical therapy evaluation
Assessment / Plan
Assessment / Plan
A/P: Patient is a 58y M with PMH significant for diverticular disease who presents to ED complaining of abdominal pain since noon.
Acute Sigmoid Diverticulitis with Perforation
Sepsis secondary to the above
- CT appreciated acute diverticulitis w/ perforation
- Surgery eval appreciated Status post Exploratory laparotomy, partial colectomy (sigmoidectomy), end colostomy (Haywood's procedure) on 10/10.
IV antibiotics: Zosyn
Clear liquid diet
Has been off pressors
Blanco catheter removed, monitor for retention.
Flomax initiated
Hypocalcemia
-monitor and replete as necessary
DVT Prophylaxis: SCDs
Code Status: Full
Anticipated Discharge: 24 - 48 hours
Subjective/Interval History
-
Date of Service: October 14, 2023
Objective Data
-
Labs:
Laboratory Results
10/14/23
04:56
WBC 6.1
Hgb 13.0
Hct 36.5 L
Plt Count 213 D
Sodium 137
Potassium 5.0
Chloride 109 H
Carbon Dioxide 22
BUN 12
Creatinine 1.0
Glucose 91
Calcium 8.9
Total Bilirubin 0.9
AST 22
ALT 17
Alkaline Phosphatase 62
Vital Signs:
Vital Signs
Temp Pulse Resp BP Pulse Ox
98.2 F 61 20 134/77 97
10/14/23 15:08 10/14/23 16:00 10/14/23 16:00 10/14/23 16:00 10/14/23 11:13
I&O
10/13/23 10/14/23 10/15/23
06:59 06:59 06:59
Intake Total 1625 / 1625
Output Total 1113 / 1113 1775 / 177 900 /
Balance 512 / 512 -1775 / -177 - / -
Physical Exam
-
General: Well Developed and No Apparent Distress
HEENT: Normocephalic, Atraumatic and Moist Mucous Membranes
Respiratory: Clear to Auscultation
Cardiac: Regular Rhythm and S1/S2; Negative Murmur, Rub or Gallop
GI: Soft, Nontender, Nondistended, Normal Bowel Sounds and Ostomy; Negative Organomegaly
Rectal: Deferred by Provider
Musculoskeletal: No Clubbing, No Cyanosis and No Edema
Skin: Negative Rash
Neuro: Nonfocal/Grossly Intact
[2023-10-14] MEDS: TYLENOL PO (17:50)
--- NOTE | 2023-10-14 17:52 | PTCARENOTE ---
Pt presents as assessed. Reports feeling much improved. OOB to chair with PT. Voiding in urinal. Medicated with PRN Dilaudid with good effect. Stoma red and budded. Dressing C/D/I. CHRISTOPHE with serosanguinous output. Pt and updated on plan of care.
Ringing appropriately, call ramos within reach.
[2023-10-14] MEDS: LOVENOX 40 MG SC (18:25)
[2023-10-14] MEDS: ZOFRAN 4 MG IV (23:18)
[2023-10-15] VITALS (10 sets, daily range): BP systolic 117–143; BP diastolic 70–91; BMI 28.3
[2023-10-15] MEDS: DILAUDID 1 MG IV ×3 (01:16→08:21)
--- NOTE | 2023-10-15 03:04 | PTCARENOTE ---
Pt requiring NC at 2L while sleeping, SPO2 now 94%. Pt pain controlled with medication @2 Hr(see MAR). Pt able to void numerous time in urinal over night. CHRISTOPHE dressing changed due to small amount of serosanguineous drainage. Assessment care and
vitals as charted.
[2023-10-15] MEDS: TYLENOL 650 MG PO ×5 (03:37→17:07)
[2023-10-15] MEDS: ZOSYN 50 IV ×4 (03:38→21:27)
[2023-10-15 06:50] LABS: Hematocrit 34.6 % (39.0-52.0); Hemoglobin 12.6 g/dL (13.0-18.0); Mean Corp Hgb Conc. 36.4 g/dL (33.0-37.0); Mean Corpuscular Hgb 31.6 pg (27.0-31.0); Mean Corpuscular Volume 86.7 fL (80.0-94.0); Mean Platelet Volume 9.1 fL (7.4-10.4); Platelet Count 197 10^3/uL (130-400); Red Blood Cell Count 3.99 10^6/uL (4.70-6.10); Red Cell Dist. Width 12.3 % (11.5-14.5); White Blood Cell Count 4.2 10^3/uL (4.8-10.8)
[2023-10-15 07:18] LABS: ALT (SGPT) 17 U/L (0-50); AST (SGOT) 22 U/L (17-59); Albumin 2.7 g/dl (3.5-5.0); Alkaline Phosphatase 71 U/L (38-126); Blood Urea Nitrogen 7 mg/dl (9-20); Calcium 8.7 mg/dl (8.4-10.2); Carbon Dioxide 26 mmol/L (22-30); Chloride 109 mmol/L (98-107); Estimated Creatinine Clearance 94 ml/min; Glucose 116 mg/dl (70-99); Magnesium 1.7 mg/dl (1.6-2.3); Potassium 3.6 mmol/L (3.5-5.1); Sodium 137 mmol/L (135-145); Total Bilirubin 0.6 mg/dl (0.2-1.3); Total Protein 4.9 g/dl (6.3-8.2); eGFR > 60.00
[2023-10-15] MEDS: FLOMAX 0.4 MG PO (08:21)
[2023-10-15] MEDS: PROTONIX IV 40 MG IV (08:21)
--- NOTE | 2023-10-15 12:07 | W.PN.GS2 ---
Today's Communication / Plan
-
Cont CLD
Multimodal pain mgmt
monitor UOP
monitor for ROBF
Assessment / Plan
-
Patient is a 58 yo M POD#4 s/p Haywood's procedure for perforated diverticulitis
AVSS. Clinically stable. No appetite.
Postoperative issues with urinary retention, flomax started, he hopes to avoid catheter and has been voiding but feels like he has PVR
-- Stay on CLD today pending stoma output
-- mIVF
-- Pain control: Tylenol josiah, Toradol, Tramadol, and IV Dilaudid - discussed multimodal approach with pt
-- Abx: Zosyn
-- DVT: Lovenox ordered
-- GI: PPI
-- Ostomy consult
-- Replace Blanco if continue issues with retention, cont Flomax
-- OK for tx to floors
Subjective Data
-
Date of Service: October 15, 2023
Minimal appetite but denies n/v, small bowel sweat in bag but not moving significant flatus since yesterday, pain not well controlled
Objective Data
-
Intake and Output
10/14/23 10/15/23 10/16/23
06:59 06:59 06:59
Intake Total 1180 / 1180
Output Total 1775 / 1775 1810 / 1810 200 / 200
Balance -1775 / -1775 -630 / -630 -200 / -200
Intake:
Oral fluids 180 / 180
IV fluids (Total) 900 / 900
IV piggybacks 100 / 100
Output:
Liquid stool amount 5 / 5
Colostomy 5 / 5
Drain Output (Total) 60 / 60 60 / 60
Right Lower Abdomen Iban- 60 / 60 60 / 60
Aguilar
Urine, Voided 200 / 200 1750 / 1750 200 / 200
Straight cath output 1510 / 1510
Vital Signs
Temp Pulse Resp BP Pulse Ox
98.4 F 61 11 125/83 95
10/15/23 11:07 10/15/23 06:00 10/15/23 06:00 10/15/23 06:00 10/15/23 03:30
Lab Results
10/15/23 06:31
10/15/23 06:31
Calcium 8.7 mg/dl (8.4-10.2) 10/15/23 06:31
Phosphorus 3.0 mg/dl (2.5-4.5) 10/15/23 06:
Magnesium 1.7 mg/dl (1.6-2.3) 10/15/23 06:31
Total Bilirubin 0.6 mg/dl (0.2-1.3) 10/15/23 06:31
AST 22 U/L (17-59) 10/15/23 06:31
ALT 17 U/L (0-50) 10/15/23 06:31
Alkaline Phosphatase 71 U/L (38-126) 10/15/23 06:31
Total Protein 4.9 g/dl (6.3-8.2) L 10/15/23 06:31
Albumin 2.7 g/dl (3.5-5.0) L 10/15/23 06:31
Physical Exam
-
Gen: NAD
Abd: soft, aquacel with moderate strikethrough, stoma PPV with scant sweat in bag, drain ss
[2023-10-15] MEDS: ZOFRAN 4 MG IV ×2 (12:22→22:44)
--- NOTE | 2023-10-15 13:30 | WOUNDNOTE ---
[facility] RN note: Patient s/p ostomy surgery
See H&P for complete history.
PMH: Diverticulitis
Ostomy location and type: s/p Haywood's procedure for perforated diverticulitis
Instructed patient ostomy pouch emptying and changing appliance using Sunil wafer # [id number]
Lumpkin pouch # [id number]. Stoma is pink, budded and with minimal drainage. Reviewed pouch emptying and appliance change with patient and spouse. All questions answered. Wafer was not secured to midline dressing at time of surgery. Per RNSheryl
plan is for surgeon to change midline dressing later today or tomorrow morning. Plan is to change appliance on 10/15.
Ostomy supplies ordered from [facility] and at bedside.
Note to case management: VN services recommended for ostomy teaching.
Nursing care plan updated, will follow as needed.
[2023-10-15] MEDS: D5/0.45%NSS with KCL 20 MEQ 1000 IV (13:33)
--- NOTE | 2023-10-15 14:22 | PTCARENOTE ---
Rec'd pt this AM. Pain improved throghout the shift. topographic computator completed teaching tdoay. Pt with minimal output in ostomy bag. remains on clear liquid diet. OOB to chair and doing well. spouse at bedside and participated in teaching.
--- NOTE | 2023-10-15 16:18 | W.PN.HOSP.TC ---
Today's Communication/Plan
-
Clear liquid diet
IV fluids
IV antibiotics
Monitor electrolytes.
Monitor for recurrent retention while on Flomax.
Increase activity with physical therapy evaluation
Assessment / Plan
Assessment / Plan
A/P: Patient is a 58y M with PMH significant for diverticular disease who presents to ED complaining of abdominal pain since noon.
Acute Sigmoid Diverticulitis with Perforation
Sepsis secondary to the above
- CT appreciated acute diverticulitis w/ perforation
- Surgery eval appreciated Status post Exploratory laparotomy, partial colectomy (sigmoidectomy), end colostomy (Haywood's procedure) on 10/10.
IV antibiotics: Zosyn
Clear liquid diet
Has been off pressors
Blanco catheter removed, monitor for retention.
Flomax initiated
Hypocalcemia
-monitor and replete as necessary
DVT Prophylaxis: SCDs
Code Status: Full
Anticipated Discharge: > 48 hours
Subjective/Interval History
-
Date of Service: October 15, 2023
Objective Data
-
Labs:
Laboratory Results
10/15/23
06:31
WBC 4.2 L
Hgb 12.6 L
Hct 34.6 L
Plt Count 197
Sodium 137
Potassium 3.6 D
Chloride 109 H
Carbon Dioxide 26
BUN 7 L
Creatinine 0.9
Glucose 116 H
Calcium 8.7
Total Bilirubin 0.6
AST 22
ALT 17
Alkaline Phosphatase 71
Vital Signs:
Vital Signs
Temp Pulse Resp BP Pulse Ox
98.4 F 77 15 123/76 95
10/15/23 11:07 10/15/23 14:00 10/15/23 14:00 10/15/23 14:00 10/15/23 03:30
I&O
10/14/23 10/15/23 10/16/23
06:59 06:59 06:59
Intake Total 1180 / 1180
Output Total 177 / 1775 1810 / 181 575 / 575
Balance -1775 / -1775 -630 / -630 -575 / -575
Physical Exam
-
General: Well Developed and No Apparent Distress
HEENT: Normocephalic, Atraumatic and Moist Mucous Membranes
Respiratory: Clear to Auscultation
Cardiac: Regular Rhythm and S1/S2; Negative Murmur, Rub or Gallop
GI: Soft, Nontender, Nondistended, Normal Bowel Sounds and Ostomy; Negative Organomegaly
Rectal: Deferred by Provider
Musculoskeletal: No Clubbing, No Cyanosis and No Edema
Skin: Negative Rash
Neuro: Nonfocal/Grossly Intact
[2023-10-15] MEDS: LOVENOX 40 MG SC (17:08)
--- NOTE | 2023-10-15 18:35 | PTCARENOTE ---
Received patient from IMU around 1730 via stretcher in stable condition. Patient denied pain. Ambulating in room. Voided in BR. Oriented to room. Call ramos in reach.
[2023-10-15] MEDS: TYLENOL PO (21:26)
[2023-10-15] MEDS: ULTRAM 100 MG PO (21:28)
[2023-10-16] MEDS: D5/0.45%NSS with KCL 20 MEQ 1000 IV ×2 (03:05→17:21)
[2023-10-16] MEDS: TYLENOL 650 MG PO ×5 (03:05→21:29)
[2023-10-16] MEDS: ZOSYN 50 IV ×4 (03:06→21:29)
[2023-10-16] MEDS: TORADOL 30 MG IV ×2 (03:12→13:42)
[2023-10-16] MEDS: TYLENOL PO (05:10)
[2023-10-16 06:26] LABS: % Basophils 0.4 % (0-2); % Eosinophils 7.4 % (0-6); % Immature Granulocytes 0.2 % (0-0.5); % Lymphocytes 18.7 % (20.5-51.1); % Monocytes 10.7 % (1.7-9.3); % Neutrophils 62.6 % (42.2-75.2); Absolute Eosinophils 0.3 10^3/uL (0-0.7); Absolute Lymphocytes 0.9 10^3/uL (1.2-3.4); Absolute Monocytes 0.5 10^3/uL (0.1-0.6); Absolute Neutrophils 2.9 10^3/uL (1.4-6.5); Hematocrit 33.3 % (39.0-52.0); Mean Corpuscular Hgb 30.3 pg (27.0-31.0); Mean Corpuscular Volume 84.1 fL (80.0-94.0); Nucleated Red Blood Cells % 0 % (-); Platelet Count 209 10^3/uL (130-400); Red Blood Cell Count 3.96 10^6/uL (4.70-6.10); Red Cell Dist. Width 12.2 % (11.5-14.5); White Blood Cell Count 4.6 10^3/uL (4.8-10.8)
[2023-10-16 06:56] LABS: ALT (SGPT) 24 U/L (0-50); AST (SGOT) 29 U/L (17-59); Albumin 2.7 g/dl (3.5-5.0); Alkaline Phosphatase 83 U/L (38-126); Blood Urea Nitrogen 6 mg/dl (9-20); Calcium 8.7 mg/dl (8.4-10.2); Carbon Dioxide 23 mmol/L (22-30); Chloride 110 mmol/L (98-107); Estimated Creatinine Clearance 94 ml/min; Glucose 107 mg/dl (70-99); Magnesium 1.7 mg/dl (1.6-2.3); Potassium 3.5 mmol/L (3.5-5.1); Sodium 138 mmol/L (135-145); Total Bilirubin 0.6 mg/dl (0.2-1.3); eGFR > 60.00
[2023-10-16 07:39] VITALS: BP 129/74
--- NOTE | 2023-10-16 08:16 | W.PN.GS2 ---
Today's Communication / Plan
-
-- No major changes, awaiting ROBF
-- Dressing change this afternoon with nursing
Assessment / Plan
-
Patient is a 58 yo M POD#5 s/p Haywood's procedure for perforated diverticulitis
AVSS. Clinically stable.
Leukopenia likely from Zosyn, otherwise stable labs
Minimal appetite, possible ileus (no unexpected)
Postoperative issues with urinary retention, Flomax started, improved
-- Continue clears for comfort
-- mIVF
-- Pain control: Tylenol josiah, Toradol, Tramadol, and IV Dilaudid - discussed multimodal approach with pt
-- Abx: Zosyn, plan for 10 days total
-- DVT: Lovenox ordered
-- GI: PPI
-- Ostomy consult
-- Replace Blanco if continue issues with retention, cont Flomax
-- OOB/ambulate
Subjective Data
-
Date of Service: October 16, 2023
Feels slightly improved. Continues to have some mild crampy abdominal pain as well as nausea overnight well-managed with medications. No episodes of emesis. Continues to pass flatus via ostomy. No fevers. Voiding issues have resolved.
Ambulating.
Objective Data
-
Intake and Output
10/15/23 10/16/23 10/17/23
06:59 06:59 06:59
Intake Total 1180 / 1180 825 / 825
Output Total 1810 / 1810 595 / 595
Balance -630 / -630 -595 / -595 825 / 825
Intake:
Oral fluids 180 / 180
IV fluids (Total) 900 / 900 825 / 825
IV piggybacks 100 / 100
Output:
Drain Output (Total) 60 / 60 20 / 20
Right Lower Abdomen Iban- 60 / 60 20 / 20
Aguilar
Urine, Voided 1750 / 1750 575 / 575
Vital Signs
Temp Pulse Resp BP Pulse Ox
98.8 F 56 18 129/74 95
10/16/23 07:39 10/16/23 07:39 10/16/23 07:39 10/16/23 07:39 10/16/23 07:39
Lab Results
10/16/23 06:09
10/16/23 06:09
Calcium 8.7 mg/dl (8.4-10.2) 10/16/23 06:09
Phosphorus 3.0 mg/dl (2.5-4.5) 10/15/23 06:31
Magnesium 1.7 mg/dl (1.6-2.3) 10/16/23 06:09
Total Bilirubin 0.6 mg/dl (0.2-1.3) 10/16/23 06:09
AST 29 U/L (17-59) 10/16/23 06:09
ALT 24 U/L (0-50) 10/16/23 06:09
Alkaline Phosphatase 83 U/L (38-126) 10/16/23 06:09
Total Protein 5.0 g/dl (6.3-8.2) L 10/16/23 06:09
Albumin 2.7 g/dl (3.5-5.0) L 10/16/23 06:09
Physical Exam
-
Gen: NAD
Abd: soft, tender to palpation, mild distension, non-peritoneal, midline dressing with some staining, CHRISTOPHE serosang, ostomy PPV - edematous, flatus, no stool
[2023-10-16] MEDS: FLOMAX 0.4 MG PO (09:38)
[2023-10-16] MEDS: NSS (PRESERVATIVE FREE) 10 ML IV (09:38)
[2023-10-16] MEDS: PROTONIX IV 40 MG IV (09:38)
[2023-10-16 10:11] VITALS: BMI 27.9
[2023-10-16 10:43] VITALS: BMI 27.9
[2023-10-16 10:45] LABS: Phosphorus 3.5 mg/dl (2.5-4.5)
[2023-10-16] MEDS: DILAUDID 1 MG IV (13:43)
--- NOTE | 2023-10-16 14:50 | WOUNDNOTE ---
[facility] RN NOTE: Met patient for ostomy change and teaching. Patient medicated for pain by ZE Steele prior to visit. Ostomy now draining liquid stool. Patient and RN Ivette report that patient emptied pouch this morning. Ostomy appliance changed with pouch
# [id number] and barrier #[id number]. Reviewed appliance change again with patient and spouse. All questions answered. TT with Dr. Guillen and midline dressing was removed and area was covered with sterile 4x4 and micropore tape. Plan is for Dr. Guillen to
remove fouzia. Patient has enough supplies if discharged with VN over the weekend. Will continue to follow as needed.
--- NOTE | 2023-10-16 15:02 | CM ---
Reviewed the chart notes. Patient continues with clear liquid diet. CM continues to be available to patient/family and is monitoring medical plan for needs at discharge.
Plan: Discharge to home with [facility] services.
[2023-10-16 15:29] VITALS: BP 115/70
--- NOTE | 2023-10-16 16:46 | WOUNDNOTE ---
[facility] RN NOTE: With patients verbal consent, a [employer] Start kit was ordered by this handbook writer and will be sent to patients home address.
[2023-10-16] MEDS: LOVENOX 40 MG SC (17:22)
--- NOTE | 2023-10-16 17:27 | W.PN.HOSP.TC ---
Today's Communication/Plan
-
IV fluids
IV antibiotics
Clear liquid diet
Monitor electrolytes
Physical therapy assessments
Assessment / Plan
Assessment / Plan
A/P: Patient is a 58y M with PMH significant for diverticular disease who presents to ED complaining of abdominal pain since noon.
Acute Sigmoid Diverticulitis with Perforation
Sepsis secondary to the above
- CT appreciated acute diverticulitis w/ perforation
- Surgery eval appreciated Status post Exploratory laparotomy, partial colectomy (sigmoidectomy), end colostomy (Haywood's procedure) on 10/10.
IV antibiotics: Zosyn for total of 10 days
Awaiting return of bowel function today on 10/15 with improved flatus and colostomy output
Clear liquid diet for another 24 hours
Blanco catheter removed, monitor for retention.
Flomax initiated
Hypocalcemia
-monitor and replete as necessary
DVT Prophylaxis: SCDs
Code Status: Full
Anticipated Discharge: 24 - 48 hours
Subjective/Interval History
-
Date of Service: October 16, 2023
Objective Data
-
Labs:
Laboratory Results
10/16/23
06:09
WBC 4.6 L
Hgb 12.0 L
Hct 33.3 L
Plt Count 209
Sodium 138
Potassium 3.5
Chloride 110 H
Carbon Dioxide 23
BUN 6 L
Creatinine 0.9
Glucose 107 H
Calcium 8.7
Total Bilirubin 0.6
AST 29
ALT 24
Alkaline Phosphatase 83
Vital Signs:
Vital Signs
Temp Pulse Resp BP Pulse Ox
98.7 F 65 19 115/70 95
10/16/23 15:29 10/16/23 15:29 10/16/23 15:29 10/16/23 15:29 10/16/23 15:29
I&O
10/15/23 10/16/23 10/17/23
06:59 06:59 06:59
Intake Total 1180 / 1180 2474 / 5
Output Total 1810 / 1810 595 / 595
Balance -630 / -630 -595 / -595 5945 / 5
Physical Exam
-
General: Well Developed and No Apparent Distress
HEENT: Normocephalic, Atraumatic and Moist Mucous Membranes
Respiratory: Clear to Auscultation
Cardiac: Regular Rhythm and S1/S2; Negative Murmur, Rub or Gallop
GI: Soft, Nontender, Nondistended, Normal Bowel Sounds and Ostomy; Negative Organomegaly
Rectal: Deferred by Provider
Musculoskeletal: No Clubbing, No Cyanosis and No Edema
Skin: Negative Rash
Neuro: Nonfocal/Grossly Intact
[2023-10-16] MEDS: MELATONIN 5 MG PO (21:55)
[2023-10-16 23:05] VITALS: BP 129/78
[2023-10-17] MEDS: TYLENOL 650 MG PO ×6 (02:27→21:55)
--- NOTE | 2023-10-17 03:06 | PTCARENOTE ---
During shift assessment, pt denied hx of falls. See documentation in Precautions-High Fall risk assessment.
--- NOTE | 2023-10-17 03:40 | PTCARENOTE ---
Addendum entered by Hattie Díaz RN 10/17/23 04:41:
Notified Misty ANDERSON. Sleep apnea risk assessment ordered and completed. No further orders at this time.
Original Note:
Pt c/o waking up out of his sleep and feeling out of breath/SOB. Pt has never been diagnosed with sleep apnea before. BP 138/83, pulse 50, O2 sat 99 RA and RR 18. Lungs sound clear. While in the room with pt, they seem asymptomatic and AA&Ox3.
[2023-10-17 04:18] VITALS: BMI 27.9
[2023-10-17] MEDS: ZOSYN 50 IV ×4 (04:29→21:56)
[2023-10-17 06:01] VITALS: BMI 27.9
[2023-10-17 06:51] LABS: Hematocrit 35.5 % (39.0-52.0); Hemoglobin 12.9 g/dL (13.0-18.0); Mean Corp Hgb Conc. 36.3 g/dL (33.0-37.0); Mean Corpuscular Hgb 31.7 pg (27.0-31.0); Mean Corpuscular Volume 87.2 fL (80.0-94.0); Mean Platelet Volume 9.5 fL (7.4-10.4); Platelet Count 218 10^3/uL (130-400); Red Blood Cell Count 4.07 10^6/uL (4.70-6.10); Red Cell Dist. Width 12.5 % (11.5-14.5); White Blood Cell Count 4.7 10^3/uL (4.8-10.8)
[2023-10-17 07:14] LABS: ALT (SGPT) 39 U/L (0-50); AST (SGOT) 46 U/L (17-59); Alkaline Phosphatase 91 U/L (38-126); Blood Urea Nitrogen 7 mg/dl (9-20); Carbon Dioxide 28 mmol/L (22-30); Chloride 108 mmol/L (98-107); Estimated Creatinine Clearance 77 ml/min; Glucose 97 mg/dl (70-99); Magnesium 1.7 mg/dl (1.6-2.3); Phosphorus 3.3 mg/dl (2.5-4.5); Sodium 139 mmol/L (135-145); Total Bilirubin 0.7 mg/dl (0.2-1.3); Total Protein 5.3 g/dl (6.3-8.2); eGFR > 60.00
[2023-10-17 07:40] VITALS: BP 135/81
[2023-10-17] MEDS: D5/0.45%NSS with KCL 20 MEQ IV (09:00)
[2023-10-17] MEDS: FLOMAX 0.4 MG PO (09:22)
[2023-10-17] MEDS: NSS (PRESERVATIVE FREE) 10 ML IV (09:23)
[2023-10-17] MEDS: PROTONIX IV 40 MG IV (09:23)
--- NOTE | 2023-10-17 09:42 | W.PN.GS2 ---
Addendum entered and electronically signed by Matty Guillen MD 10/17/23 13:48:
Patient seen and examined. Agree with assessment plan as documented below.
Reports poor sleep. Pain improved. No nausea or vomiting. Reports flatus and stool via ostomy. Afebrile. Ambulating. No issues with voiding.
Gen: NAD
Abd: soft, NT, mild distension, non-peritoneal, incision c/d/i - no erythema, ecchymosis or drainage, ostomy PPV - flatus and stool, CHRISTOPHE sersang
POD#6 s/p Haywood's procedure for perforated diverticulitis
AFVSS. Clinically stable.
Leukopenia likely from Zosyn, otherwise stable labs
Bowel function returning with +flatus/stool via ostomy
Postoperative issues with urinary retention, Flomax started, improved
-- Advance diet to full liquids, OK for toast as well
-- D/C IVF
-- Pain control: Tylenol josiah, Toradol, Tramadol, and IV Dilaudid prn
-- Abx: Zosyn, plan for 10 days total
-- DVT ppx: Lovenox
-- GI ppx: PPI
-- Ostomy nurse following
-- Continue Flomax
-- Lorazepam 0.5mg HS for sleep
-- OOB/ambulate
Original Note:
Today's Communication / Plan
-
Advance to FLD
Assessment / Plan
-
Patient is a 58 yo M POD#6 s/p Haywood's procedure for perforated diverticulitis
AFVSS. Clinically stable.
Leukopenia likely from Zosyn, otherwise stable labs
Bowel function returning with +flatus/stool via ostomy
Postoperative issues with urinary retention, Flomax started, improved
-- Advance diet to full liquids, ok for toast as well
-- D/C IVF
-- Pain control: Tylenol josiah, Toradol, Tramadol, and IV Dilaudid prn
-- Abx: Zosyn, plan for 10 days total
-- DVT ppx: Lovenox
-- GI ppx: PPI
-- Ostomy nurse following
-- Continue Flomax
-- Lorazepam 0.5mg HS for sleep
-- OOB/ambulate
Subjective Data
-
Date of Service: October 17, 2023
Patient seen and examined at bedside. Denies N/V. Appetite returned and he is eager to try some toast. Passing flatus/stool via ostomy and changed bag on his own this am. Denies significant discomfort. Reports insomnia, melatonin did not help.
Objective Data
-
Intake and Output
10/16/23 10/17/23 10/18/23
06:59 06:59 06:59
Intake Total 4055 / 4055
Output Total 595 / 595 / 90
Balance -595 / -595 3965 / 3965
Intake:
Oral fluids 1230 / 1230
IV fluids (Total) 2625 / 2625
IV piggybacks 200 / 200
Output:
Drain Output (Total)
Right Lower Abdomen Iban- /
Aguilar
Urine, Voided 575 / 575
Other:
Number of approximated MODERATE 3
amounts of urine
Number of approximated LARGE 3
amounts of urine
Number of unmeasured liquid
stools
Colostomy 2
Vital Signs
Temp Pulse Resp BP Pulse Ox
98.8 F 53 14 135/81 96
10/17/23 07:40 10/17/23 07:40 10/17/23 07:40 10/17/23 07:40 10/17/23 07:40
Lab Results
10/17/23 06:14
10/17/23 06:14
Calcium 9.0 mg/dl (8.4-10.2) 10/17/23 06:14
Phosphorus 3.3 mg/dl (2.5-4.5) 10/17/23 06:14
Magnesium 1.7 mg/dl (1.6-2.3) 10/17/23 06:14
Total Bilirubin 0.7 mg/dl (0.2-1.3) 10/17/23 06:14
AST 46 U/L (17-59) 10/17/23 06:14
ALT 39 U/L (0-50) 10/17/23 06:14
Alkaline Phosphatase 91 U/L (38-126) 10/17/23 06:14
Total Protein 5.3 g/dl (6.3-8.2) L 10/17/23 06:14
Albumin 3.0 g/dl (3.5-5.0) L 10/17/23 06:14
Physical Exam
-
Gen: NAD
Abd: soft, NT, mild distension, non-peritoneal, midline dressing changed, minimal ssf drainage with gap between jeff at distal end of incision. Laura have been removed. CHRISTOPHE serosang, ostomy PPV - mild edema, flatus in appliance
--- NOTE | 2023-10-17 11:48 | W.PN.HOSP.TC ---
Today's Communication/Plan
-
Monitor vital signs see plan
Monitor with diet
Monitor bowel function
Continue with IS
pain control
Assessment / Plan
Assessment / Plan
A/P: Patient is a 58y M with PMH significant for diverticular disease who presents to ED complaining of abdominal pain since noon.
Acute Sigmoid Diverticulitis with Perforation
Sepsis secondary to the above
- CT appreciated acute diverticulitis w/ perforation
- Surgery eval appreciated Status post Exploratory laparotomy, partial colectomy (sigmoidectomy), end colostomy (Haywood's procedure) on 10/10.
IV antibiotics: Zosyn for total of 10 days
now iwth bowel function; + ostomy
on fulls
Blanco catheter removed, monitor for retention.
Flomax initiated
subjective sob at times; denies chest pain
no hypoxia
XR from 10/10 did show atelectasis
likely atelectasis; monitor. If more frequent then will get x-ray
cw IS
Hypocalcemia
-monitor
DVT Prophylaxis: lovenox
Code Status: Full
General: Well Developed and No Apparent Distress
HEENT: Normocephalic, Atraumatic and Moist Mucous Membranes
Respiratory: Clear to Auscultation
Cardiac: Regular Rhythm and S1/S2; Negative Murmur, Rub or Gallop
GI: Soft, Nontender, Nondistended, Normal Bowel Sounds and Ostomy
Musculoskeletal: No Edema
Neuro: Nonfocal/Grossly Intact
Anticipated Discharge: > 48 hours
Subjective/Interval History
-
Date of Service: October 17, 2023
denies nausea
Objective Data
-
Labs:
Laboratory Results
10/17/23
06:14
WBC 4.7 L
Hgb 12.9 L
Hct 35.5 L
Plt Count 218
Sodium 139
Potassium 4.0
Chloride 108 H
Carbon Dioxide 28
BUN 7 L
Creatinine 1.1
Glucose 97
Calcium 9.0
Total Bilirubin 0.7
AST 46
ALT 39
Alkaline Phosphatase 91
Vital Signs:
Vital Signs
Temp Pulse Resp BP Pulse Ox
98.8 F 53 14 135/81 96
10/17/23 07:40 10/17/23 07:40 10/17/23 07:40 10/17/23 07:40 10/17/23 07:40
I&O
10/16/23 10/17/23 10/18/23
06:59 06:59 06:59
Intake Total 4055 / 4055
Output Total 595 / 595 90 / 90
Balance -595 / -595 3965 / 3965
[2023-10-17 12:50] VITALS: BP 132/83; PULSE 66; O2SAT 99
--- NOTE | 2023-10-17 13:08 | PTOTSP ---
The patient is independent with ambulation and elevations, anticipates returning home without concerns regarding his mobility. Encouraged the patient to ambulate around the unit to increase activity level. No PT needs at this time, will sign off.
[2023-10-17] MEDS: ULTRAM 100 MG PO (13:48)
--- NOTE | 2023-10-17 13:57 | PTOTSP ---
pt has met all OT goals. pt is capable of completing functional transfers, ambulation, simple ADLs with little to no assistance. will sign off.
[2023-10-17] MEDS: ZOFRAN 4 MG IV (15:28)
[2023-10-17 15:50] VITALS: BP 133/80
[2023-10-17] MEDS: LOVENOX 40 MG SC (17:29)
[2023-10-17] MEDS: BENADRYL 25 MG PO (22:27)
[2023-10-17 23:00] VITALS: BP 127/74
[2023-10-18] MEDS: TYLENOL PO ×3 (02:00→19:00)
[2023-10-18] MEDS: ZOSYN 50 IV ×4 (04:13→22:05)
[2023-10-18 07:50] VITALS: BP 141/88
[2023-10-18] MEDS: PROTONIX IV 40 MG IV (08:07)
[2023-10-18] MEDS: NSS (PRESERVATIVE FREE) 10 ML IV (08:07)
[2023-10-18] MEDS: FLOMAX 0.4 MG PO (08:07)
[2023-10-18] MEDS: TORADOL 10 MG IV (08:10)
[2023-10-18] MEDS: ULTRAM 100 MG PO (08:11)
[2023-10-18 08:49] LABS: ALT (SGPT) 51 U/L (0-50); AST (SGOT) 58 U/L (17-59); Albumin 3.4 g/dl (3.5-5.0); Alkaline Phosphatase 103 U/L (38-126); Blood Urea Nitrogen 8 mg/dl (9-20); Carbon Dioxide 26 mmol/L (22-30); Chloride 104 mmol/L (98-107); Estimated Creatinine Clearance 77 ml/min; Glucose 82 mg/dl (70-99); Magnesium 1.7 mg/dl (1.6-2.3); Phosphorus 3.5 mg/dl (2.5-4.5); Potassium 3.8 mmol/L (3.5-5.1); Sodium 137 mmol/L (135-145); Total Bilirubin 0.7 mg/dl (0.2-1.3); Total Protein 5.9 g/dl (6.3-8.2); eGFR > 60.00
--- NOTE | 2023-10-18 10:45 | W.PN.HOSP.TC ---
Today's Communication/Plan
-
Monitor vital signs
see plan
Continue with fulls
Monitor bowel function
Monitor drain
Continue antibiotics
Assessment / Plan
Assessment / Plan
A/P: Patient is a 58y M with PMH significant for diverticular disease who presents to ED complaining of abdominal pain since noon.
Acute Sigmoid Diverticulitis with Perforation
Sepsis secondary to the above
- CT appreciated acute diverticulitis w/ perforation
- Surgery eval appreciated Status post Exploratory laparotomy, partial colectomy (sigmoidectomy), end colostomy (Haywood's procedure) on 10/10.
IV antibiotics: Zosyn for total of 10 days
now with bowel function; + ostomy
on fulls
Blanco catheter removed, monitor for retention.
Flomax initiated
monitor drain in place
subjective sob at times; denies chest pain
no hypoxia
XR from 10/10 did show atelectasis
likely atelectasis; monitor. If more frequent then will get x-ray
cw IS
Hypocalcemia
-monitor
DVT Prophylaxis: lovenox
Code Status: Full
General: Well Developed and No Apparent Distress
HEENT: Normocephalic, Atraumatic and Moist Mucous Membranes
Respiratory: Clear to Auscultation
Cardiac: Regular Rhythm and S1/S2; Negative Murmur, Rub or Gallop
GI: Soft, Nontender, Nondistended, Normal Bowel Sounds and Ostomy
Musculoskeletal: No Edema
Neuro: Nonfocal/Grossly Intact
Anticipated Discharge: 24 - 48 hours
Subjective/Interval History
-
Date of Service: October 18, 2023
denies nausea
Objective Data
-
Labs:
Laboratory Results
10/18/23
07:17
WBC Pending
Hgb Pending
Hct Pending
Plt Count Pending
Sodium 137
Potassium 3.8
Chloride 104
Carbon Dioxide 26
BUN 8 L
Creatinine 1.1
Glucose 82
Calcium 9.0
Total Bilirubin 0.7
AST 58
ALT 51 H
Alkaline Phosphatase 103
Vital Signs:
Vital Signs
Temp Pulse Resp BP Pulse Ox
98.8 F 64 16 141/88 97
10/18/23 07:50 10/18/23 07:50 10/18/23 07:50 10/18/23 07:50 10/18/23 07:50
I&O
10/17/23 10/18/23 10/19/23
06:59 06:59 06:59
Intake Total 4055 / 4055 2380 / 2380
Output Total 90 / 90 90 / 90
Balance 3965 / 3965 2290 / 2290
[2023-10-18] MEDS: TYLENOL 650 MG PO ×3 (10:59→22:06)
[2023-10-18 11:50] LABS: % Basophils 0.7 % (0-2); % Eosinophils 6.8 % (0-6); % Immature Granulocytes 0.5 % (0-0.5); % Lymphocytes 20.1 % (20.5-51.1); % Monocytes 9.5 % (1.7-9.3); % Neutrophils 62.4 % (42.2-75.2); Absolute Eosinophils 0.4 10^3/uL (0-0.7); Absolute Lymphocytes 1.2 10^3/uL (1.2-3.4); Absolute Monocytes 0.6 10^3/uL (0.1-0.6); Absolute Neutrophils 3.6 10^3/uL (1.4-6.5); Hematocrit 40.1 % (39.0-52.0); Hemoglobin 14.2 g/dL (13.0-18.0); Mean Corp Hgb Conc. 35.4 g/dL (33.0-37.0); Mean Corpuscular Hgb 31.2 pg (27.0-31.0); Mean Corpuscular Volume 88.1 fL (80.0-94.0); Mean Platelet Volume 9.7 fL (7.4-10.4); Nucleated Red Blood Cells % 0 % (-); Platelet Count 283 10^3/uL (130-400); Red Blood Cell Count 4.55 10^6/uL (4.70-6.10); Red Cell Dist. Width 12.7 % (11.5-14.5); White Blood Cell Count 5.8 10^3/uL (4.8-10.8)
--- NOTE | 2023-10-18 13:48 | W.PN.GS2 ---
Addendum entered and electronically signed by Luis Abbott MD 10/18/23 14:59:
Patient seen and examined this a.m. with nurse practitioner. Agree with documented progress note. This is a delayed entry.
Patient offers no complaints. Comfortably resting on couch in hospital room.
Tolerating dietary advancement and ostomy remains functional. No additional specific concerns or questions.
AFVSS
ABD: Soft, nondistended, minimal incisional tenderness, left-sided ostomy appliance in place with some liquid stool and gas. Healthy mucosa, slight edema but not significant.
A/P: POD #7 status post Haywood
Advance diet as tolerated to low residue
Anticipating probable DC home tomorrow
CHRISTOPHE will be removed
Will be discharged on short course of Augmentin to complete postoperative antibiotics
Original Note:
Today's Communication / Plan
-
Advance to LRD
Assessment / Plan
-
Patient is a 58 yo M POD#7 s/p Haywood's procedure for perforated diverticulitis
AFVSS. Clinically stable.
Leukopenia resolved, labs stable
Bowel function returning with +flatus/stool via ostomy. Tolerating diet
-- Advance to LRD
-- Pain control: Tylenol josiah, Toradol, Tramadol, and IV Dilaudid prn
-- Abx: Zosyn, plan for 10 days total of abx
-- DVT ppx: Lovenox
-- GI ppx: PPI
-- Ostomy nurse following
-- C/W CHRISTOPHE, will likely be able to remove prior to discharge
-- Continue Flomax
-- OOB/ambulate
Subjective Data
-
Date of Service: October 18, 2023
Patient seen and examined at bedside with Dr. Abbott. OOB to chair. Denies n/v. Tolerating diet but not much appetite. Passing flatus/stool via appliance, notes lots of loose stool overnight. Pain is minimal.
Objective Data
-
Intake and Output
10/17/23 10/18/23 10/19/23
06:59 06:59 06:59
Intake Total 4055 / 4055 2380 / 2380
Output Total
Balance 3965 / 3965 2290 / 2290
Intake:
Oral fluids 1230 / 1230 2280 / 2280
IV fluids (Total) 2625 / 2625
IV piggybacks 200 / 200 100 / 100
Output:
Drain Output (Total)
Right Lower Abdomen Iban-
Aguilar
Other:
Number of approximated MODERATE 3 5
amounts of urine
Number of approximated LARGE 3 3
amounts of urine
Number of unmeasured liquid
stools
Colostomy 2
Vital Signs
Temp Pulse Resp BP Pulse Ox
98.8 F 64 16 141/88 97
10/18/23 07:50 10/18/23 07:50 10/18/23 07:50 10/18/23 07:50 10/18/23 07:50
Lab Results
10/18/23 07:17
10/18/23 07:17
Calcium 9.0 mg/dl (8.4-10.2) 10/18/23 07:17
Phosphorus 3.5 mg/dl (2.5-4.5) 10/18/23 07:17
Magnesium 1.7 mg/dl (1.6-2.3) 10/18/23 07:17
Total Bilirubin 0.7 mg/dl (0.2-1.3) 10/18/23 07:17
AST 58 U/L (17-59) 10/18/23 07:17
ALT 51 U/L (0-50) H 10/18/23 07:17
Alkaline Phosphatase 103 U/L (38-126) 10/18/23 07:17
Total Protein 5.9 g/dl (6.3-8.2) L 10/18/23 07:17
Albumin 3.4 g/dl (3.5-5.0) L 10/18/23 07:17
Physical Exam
-
Gen: NAD
Abd: soft, NT, ND, midline incision with minimal ssf drainage with gap between jeff at distal end of incision. Laura have been removed.
CHRISTOPHE serosang, ostomy PPV - mild edema, flatus/stool in appliance
[2023-10-18 16:10] VITALS: BP 148/75
[2023-10-18] MEDS: FLUSH (NSS) 2 FLUSH IV (16:48)
[2023-10-18] MEDS: LOVENOX 40 MG SC (17:57)
[2023-10-18] MEDS: BENADRYL 25 MG PO (22:06)
[2023-10-18 23:00] VITALS: BP 124/74
[2023-10-19] MEDS: TYLENOL PO ×2 (01:16→05:52)
[2023-10-19] MEDS: ZOSYN 50 IV ×2 (04:10→09:15)
[2023-10-19 06:00] VITALS: BMI 27.5
[2023-10-19 07:23] VITALS: BP 132/81
[2023-10-19] MEDS: PROTONIX 40 MG PO (07:39)
[2023-10-19] MEDS: FLOMAX 0.4 MG PO (07:39)
[2023-10-19 08:25] LABS: Hematocrit 39.7 % (39.0-52.0); Hemoglobin 14.1 g/dL (13.0-18.0); Mean Corp Hgb Conc. 35.5 g/dL (33.0-37.0); Mean Corpuscular Hgb 31.3 pg (27.0-31.0); Mean Platelet Volume 9.5 fL (7.4-10.4); Platelet Count 293 10^3/uL (130-400); Red Blood Cell Count 4.51 10^6/uL (4.70-6.10); Red Cell Dist. Width 12.6 % (11.5-14.5); White Blood Cell Count 4.7 10^3/uL (4.8-10.8)
--- NOTE | 2023-10-19 08:30 | W.PN.GS2 ---
Addendum entered and electronically signed by Luis Abbott MD 10/19/23 09:12:
Patient seen and examined with nurse practitioner. Agree with documented progress note
Doing well, tolerating diet, postop pain mild, ostomy functioning
AFVSS
NAD AAOx3
A/P: POD #8 status post Haywood
Stable for discharge home, CHRISTOPHE removed, outpatient follow-up with Dr. Guillen
Complete a total of 10-day course of antibiotics (Augmentin on DC)
Original Note:
Today's Communication / Plan
-
dispo planning
Assessment / Plan
-
Patient is a 58 yo M POD#8 s/p Haywood's procedure for perforated diverticulitis
AFVSS. Clinically stable.
tolerating diet with good bowel function
-- Continue LRD
-- Pain control: Tylenol josiah, Toradol, Tramadol
-- Abx: Zosyn, plan for 10 days total of abx, transition to Augmentin upon d/c
-- DVT ppx: Lovenox
-- GI ppx: PPI
-- Ostomy nurse following
-- CHRISTOPHE removed at bedside in anticipation of discharge
Ok for discharge from surgical standpoint, d/c instructions updated
Subjective Data
-
Date of Service: October 19, 2023
Patient seen and examined at bedside with Dr. Abbott. Denies pain. ambulating in halls. Overall feels much better. tolerating diet without n/v/pain. Passing flatus/bm's from ostomy. changed his own appliance this am
Objective Data
-
Intake and Output
10/18/23 10/19/23 10/20/23
06:59 06:59 06:59
Intake Total 2380 / 2380 700 / 700
Output Total 90 / 90 75 / 75
Balance 2290 / 2290 625 / 625
Intake:
Oral fluids 2280 / 2280 600 / 600
IV piggybacks 100 / 100 100 / 100
Output:
Drain Output (Total) /
Right Lower Abdomen Iban- /
Aguilar
Other:
Number of approximated MODERATE 5 2
amounts of urine
Number of approximated LARGE 3
amounts of urine
Vital Signs
Temp Pulse Resp BP Pulse Ox
98.4 F 66 17 132/81 97
10/19/23 07:23 10/19/23 07:23 10/19/23 07:23 10/19/23 07:23 10/19/23 07:23
Lab Results
10/19/23 07:39
Calcium 9.0 mg/dl (8.4-10.2) 10/18/23 07:17
Phosphorus 3.5 mg/dl (2.5-4.5) 10/18/23 07:17
Magnesium 1.7 mg/dl (1.6-2.3) 10/18/23 07:17
Total Bilirubin 0.7 mg/dl (0.2-1.3) 10/18/23 07:17
AST 58 U/L (17-59) 10/18/23 07:17
ALT 51 U/L (0-50) H 10/18/23 07:17
Alkaline Phosphatase 103 U/L (38-126) 10/18/23 07:17
Total Protein 5.9 g/dl (6.3-8.2) L 10/18/23 07:17
Albumin 3.4 g/dl (3.5-5.0) L 10/18/23 07:17
Physical Exam
-
Gen: NAD
Abd: soft, NT, ND, midline incision with minimal ssf drainage with gap between jeff at distal end of incision (smaller).
CHRISTOPHE serous fluid (removed), ostomy PPV - mild edema, flatus in appliance
[2023-10-19 09:00] LABS: ALT (SGPT) 48 U/L (0-50); AST (SGOT) 43 U/L (17-59); Albumin 3.4 g/dl (3.5-5.0); Alkaline Phosphatase 92 U/L (38-126); Blood Urea Nitrogen 10 mg/dl (9-20); Calcium 9.1 mg/dl (8.4-10.2); Carbon Dioxide 30 mmol/L (22-30); Chloride 105 mmol/L (98-107); Estimated Creatinine Clearance 77 ml/min; Glucose 88 mg/dl (70-99); Magnesium 1.8 mg/dl (1.6-2.3); Phosphorus 3.2 mg/dl (2.5-4.5); Potassium 3.9 mmol/L (3.5-5.1); Sodium 138 mmol/L (135-145); Total Bilirubin 0.6 mg/dl (0.2-1.3); Total Protein 5.9 g/dl (6.3-8.2); eGFR > 60.00
[2023-10-19] MEDS: TYLENOL 650 MG PO (09:15)
--- NOTE | 2023-10-19 10:50 | W.PN.HOSP.TC ---
Addendum entered and electronically signed by Jake Yadav MD 10/19/23 13:13:
Time of discharge 37 minutes
Original Note:
Today's Communication/Plan
-
Monitor vital signs see plan
Tolerated low residue diet
Discussed with surgery, discharge today
Continue antibiotics on discharge
Assessment / Plan
Assessment / Plan
A/P: Patient is a 58y M with PMH significant for diverticular disease who presents to ED complaining of abdominal pain since noon.
Acute Sigmoid Diverticulitis with Perforation
Sepsis secondary to the above
- CT appreciated acute diverticulitis w/ perforation
- Surgery eval appreciated Status post Exploratory laparotomy, partial colectomy (sigmoidectomy), end colostomy (Haywood's procedure) on 10/10.
IV antibiotics: Zosyn for total of 10 days; dc on augmentin to complete course
now with bowel function; + ostomy
on LRD; tolerated. dc today
Blanco catheter removed, monitor for retention.
Flomax initiated
drain dc'ed
subjective sob at times; denies chest pain
no hypoxia
XR from 10/10 did show atelectasis
likely atelectasis; monitor. If more frequent then will get x-ray
cw IS
now improving sob
Hypocalcemia
resolved
DVT Prophylaxis: lovenox
Code Status: Full
General: Well Developed and No Apparent Distress
HEENT: Normocephalic, Atraumatic and Moist Mucous Membranes
Respiratory: Clear to Auscultation
Cardiac: Regular Rhythm and S1/S2; Negative Murmur, Rub or Gallop
GI: Soft, Nontender, Nondistended, Normal Bowel Sounds and Ostomy
Musculoskeletal: No Edema
Neuro: Nonfocal/Grossly Intact
Anticipated Discharge: Today
Subjective/Interval History
-
Date of Service: October 19, 2023
denies pain
Objective Data
-
Labs:
Laboratory Results
10/19/23
07:39
WBC 4.7 L
Hgb 14.1
Hct 39.7
Plt Count 293
Sodium 138
Potassium 3.9
Chloride 105
Carbon Dioxide 30
BUN 10
Creatinine 1.1
Glucose 88
Calcium 9.1
Total Bilirubin 0.6
AST 43
ALT 48
Alkaline Phosphatase 92
Vital Signs:
Vital Signs
Temp Pulse Resp BP Pulse Ox
98.4 F 66 17 132/81 97
10/19/23 07:23 10/19/23 07:23 10/19/23 07:23 10/19/23 07:23 10/19/23 07:23
I&O
10/18/23 10/19/23 10/20/23
06:59 06:59 06:59
Intake Total 2380 / 2380 700 / 700
Output Total 90 / 90 75 / 75
Balance 2290 / 2290 625 / 625
--- NOTE | 2023-10-19 10:59 | W.DCSUMMARY ---
Discharge Summary
Discharge Data
Date of Admission: 10/11/23
Date of Discharge: 10/19/23
-
Pending Results: No
Hospital Course
58-year-old male came to the hospital with sepsis secondary to acute sigmoid diverticulitis with perforation. Patient was seen by surgery and was taken for expiratory laparotomy with partial colectomy with sigmoidectomy and end colostomy (Haywood's
procedure). Patient was initially started on IV antibiotic which was later transitioned to oral antibiotics prior to discharge. Patient also had subjective shortness of breath which was likely thought was secondary to atelectasis. Over time his
bleeding continue to improve. He also developed acute urinary retention where he initially had Blanco catheter which was eventually removed and he was able to void on his own. Over time patient abdominal symptoms also continue to improve and he was
able to have bowel function and was then put on diet. Prior to discharge she was able to tolerate low residue diet. Once his symptoms continue to improve and he was able to tolerate diet, he was then discharged home with instructions to follow-up
with all his physicians outpatient.
Discharge Plan
-
Patient Disposition: Home (Routine Discharge)
Discharge Diagnosis/Procedures: Sepsis 2/2 Acute Sigmoid Diverticulitis with Perforation
Status post Exploratory laparotomy, partial colectomy (sigmoidectomy), end colostomy (Haywood's procedure)
Atelectasis
Condition: Fair
Diet: Low Residue
Activity: No strenuous activity
Additional Activity: Do not lift over 15 lbs for the next 4-6 weeks
Driving Restrictions: Wait until off narcotics/comfortable twisting
Bathing Restrictions: OK to Shower
Wound Care: Ok to shower and wash incisions gently with soap and water. Spencer will be removed at your follow up appointment. Cover the incision where your drain was with dry gauze or bandage and change daily with showering until drainage no longer
noted.
Activity Restrictions/Additional Instructions:
Colostomy appliance change with Sunil Barrier # [id number] and pouch # [id number].
Call supply company (list in folder provided) for monthly Ostomy supplies after discharge (ask VN to order supplies while on service).
Follow up with surgeon.
Call [facility] RN nurse for ostomy pouching concerns or leakage problems [phone] or [phone] or [phone].
Instructions: Low Fiber Diet
Referrals:
Donna Lopez DO [Family Provider] - in less than 1 week
Matty Guillen MD [Active] - in one to two weeks
Prescriptions:
New
acetaminophen 325 mg Tablet
650 mg PO Q4H Qty: 0 0RF
tramadol 50 mg Tablet
100 mg PO Q6HPRN PRN (Reason: severe pain) Qty: 20 0RF
tamsulosin 0.4 mg Capsule
0.4 mg PO DAILY Qty: 7 0RF
pantoprazole 40 mg Tablet,Delayed Release (Dr/Ec)
40 mg PO DAILY Qty: 30 0RF
amoxicillin-pot clavulanate 875-125 mg tablet
1 tab PO BID Qty: 6 0RF
Continued
psyllium Packet
1 packet PO DAILY
Discharge Orders:
Discharge Patient (As Directed); Ordered 10/19/23
Ordered By: Jake Yadav
Discharge Date and Time
Discharge Date/Time: 10/19/23 11:45
Print Language: MOZAMBICAN
[2023-10-19 11:20] VITALS: BP 166/74
--- NOTE | 2023-10-19 13:41 | CM ---
Reviewed the chart notes. CM continues to be available to patient/family and is monitoring medical plan for needs at discharge.
Plan: Discharge [facility].
== END 2023-10-19 11:45 | disposition home health service (06) | DRG 853 ==
LOC: 2 SOUTH 04:52
PROVIDERS: Emergency Medicine; Internal Medicine; Physician Assistant; Radiology Diagnostic Radiology; ADMITTING PHYSICIAN Hospitalist; ATTENDING PHYSICIAN Internal Medicine; CONSULT PHYSICIAN Surgery; EMERGENCY PHYSICIAN Emergency Medicine; FAMILY PHYSICIAN Family Medicine
PROC: 0D9670Z Drainage of Stomach with Drainage Device, Via Natural or Artificial Opening (ICD-10-PCS; 2023-10-11)
PROC: 0DTN0ZZ Resection of Sigmoid Colon, Open Approach (ICD-10-PCS; 2023-10-11)
PROC: 0D1M0Z4 Bypass Descending Colon to Cutaneous, Open Approach (ICD-10-PCS; 2023-10-11)
DX: A41.9 Sepsis, unspecified organism (principal); K65.9 Peritonitis, unspecified; K57.20 Diverticulitis of large intestine with perforation and abscess without bleeding; J98.11 Atelectasis; K56.7 Ileus, unspecified; R33.9 Retention of urine, unspecified; E83.51 Hypocalcemia; D72.829 Elevated white blood cell count, unspecified; J30.2 Other seasonal allergic rhinitis; Z80.0 Family history of malignant neoplasm of digestive organs
CPT/HCPCS: 88307; 74018; 74177; 80048; 80053; 81003; 81015; 83690; 83735; 84100; 85025; 85027; 96365; 96375; 97116; 97163; 97166; 97530; 97535; 99291; C1776; Q9967

== ENCOUNTER → 2024-01-05 08:50 | Outpatient (REF) | payer OTHER, SELFPAY | LOC: RAD 08:50 | PROVIDERS: ATTENDING PHYSICIAN Surgery; FAMILY PHYSICIAN Family Medicine | DX: K57.20 Diverticulitis of large intestine with perforation and abscess without bleeding (principal); Z93.3 Colostomy status | CPT/HCPCS: 74270 ==

== ENCOUNTER 2024-01-21 06:18 | Inpatient (IN) | payer OTHER, SELFPAY ==
[2024-01-14 12:33] VITALS: BMI 27.4
[2024-01-14 13:49] LABS: Hematocrit 46.4 % (39.0-52.0); Hemoglobin 16.4 g/dL (13.0-18.0); Mean Corp Hgb Conc. 35.3 g/dL (33.0-37.0); Mean Corpuscular Volume 84.8 fL (80.0-94.0); Mean Platelet Volume 9.8 fL (7.4-10.4); Platelet Count 230 10^3/uL (130-400); Red Blood Cell Count 5.47 10^6/uL (4.70-6.10); Red Cell Dist. Width 12.4 % (11.5-14.5); White Blood Cell Count 4.6 10^3/uL (4.8-10.8)
[2024-01-14 14:07] LABS: Blood Urea Nitrogen 17 mg/dl (9-20); Calcium 9.6 mg/dl (8.4-10.2); Carbon Dioxide 29 mmol/L (22-30); Chloride 101 mmol/L (98-107); Estimated Creatinine Clearance 82 ml/min; Glucose 94 mg/dl (70-99); Potassium 4.6 mmol/L (3.5-5.1); Sodium 143 mmol/L (135-145); eGFR > 60.00
[2024-01-21] VITALS (13 sets, daily range): BP systolic 95–139; BP diastolic 56–93; BMI 27.4
[2024-01-21] MEDS: TYLENOL 1000 MG PO (07:05)
--- NOTE | 2024-01-21 11:26 | W.IMMPOSTOP ---
Surgical Immed Post Op Note
-
Primary Surgeon: Wilmer
Assisting Surgeon: MAGNUS Rod
Pre-op Diagnosis: Diverticulitis, colostomy
Post-op Diagnosis: Diverticulitis, colostomy
Procedure Performed: Laparoscopic colostomy reversal, lysis of adhesions
Anesthesia Type: General
Specimen / Cultures:
1. Descending colon and anastomotic rings
Estimated Blood Loss: 11 cc
Complications: None
Operative Findings:
1. Mild SB and colonic adhesions taken down sharply, dense scar at ostomy during take down
2. Mobilization of descending colon, stump healthy dilate with sizers
3. Side-to-end colonic anastomosis using 28 EEA stapler, intact rings, leak test negative (no tension or ischemia)
4. Fascia of old ostomy site closed in 2 layers
[2024-01-21] MEDS: DILAUDID 0.5 MG IV ×3 (11:47→19:50)
[2024-01-21] MEDS: TYLENOL 650 MG PO ×3 (12:08→19:46)
[2024-01-21] MEDS: DILAUDID 0.25 MG IV (12:23)
[2024-01-21] MEDS: TORADOL 10 MG IV (12:37)
--- NOTE | 2024-01-21 14:13 | PTCARENOTE ---
Pt arrived to [facility] from PACU s/p lap colostomy reversal. Pt AAOx3 but drowsy, 4 lap sites JOVANY, C/D/I, L abdomen with gauze and tape with mild shadowing, Blanco in place draining yellow urine. Pt states no pain at this time. Oriented to call ramos
and room, bed locked and in lowest position, call ramos within reach. Care ongoing.
[2024-01-21] MEDS: NORMOSOL-R/PLASMALYTE-A 1000 IV ×2 (14:29→23:25)
[2024-01-22] MEDS: TYLENOL PO (00:46)
[2024-01-22] MEDS: TORADOL 10 MG IV ×3 (03:12→16:50)
[2024-01-22] MEDS: TYLENOL 650 MG PO ×5 (03:12→20:41)
[2024-01-22 05:03] LABS: Hematocrit 39.4 % (39.0-52.0); Hemoglobin 13.9 g/dL (13.0-18.0); Mean Corp Hgb Conc. 35.3 g/dL (33.0-37.0); Mean Corpuscular Hgb 30.7 pg (27.0-31.0); Mean Platelet Volume 9.4 fL (7.4-10.4); Platelet Count 192 10^3/uL (130-400); Red Blood Cell Count 4.53 10^6/uL (4.70-6.10); Red Cell Dist. Width 12.2 % (11.5-14.5); White Blood Cell Count 10.1 10^3/uL (4.8-10.8)
[2024-01-22 05:31] LABS: Blood Urea Nitrogen 18 mg/dl (9-20); Calcium 7.8 mg/dl (8.4-10.2); Carbon Dioxide 23 mmol/L (22-30); Chloride 102 mmol/L (98-107); Estimated Creatinine Clearance 82 ml/min; Glucose 83 mg/dl (70-99); Potassium 4.2 mmol/L (3.5-5.1); Sodium 139 mmol/L (135-145); eGFR > 60.00
[2024-01-22 07:08] VITALS: BP 102/58
--- NOTE | 2024-01-22 07:26 | W.PN.GS2 ---
Today's Communication / Plan
-
-- Clears
-- Entereg
-- mIVF
-- Pain control: Tylenol, Toradol, IV Dilaudid PRN
-- Blanco to be removed on POD#2
Assessment / Plan
-
Patient is a 58 yo M POD#1 s/p laparoscopic colostomy reversal
AVSS
Labs unremarkable
Recovering well. No postoperative concerns. Awaiting consistent return of malfunction. Plan to trial of clears today. Entereg added for promotion of malfunction.
-- Clears
-- Entereg
-- mIVF
-- Pain control: Tylenol, Toradol, IV Dilaudid PRN
-- DVT: Lovenox
-- GI: home PPI
-- OOB/ambulate
-- Blanco to be removed on POD#2
Subjective Data
-
Date of Service: January 22, 2024
No complaints. Denies worsening abdominal pain. No nausea or vomiting. No flatus or BM. Minimal ambulation.
Objective Data
-
Intake and Output
01/21/24 01/22/24 01/23/24
06:59 06:59 06:59
Intake Total 2000 / 1999
Output Total 850 / 850
Balance 1150 / 1150
Intake:
Oral fluids 600 / 600
IV fluids (Total) 1400 / 1400
normosol 200 / 200
Output:
Urine, Blanco 850 / 850
Vital Signs
Temp Pulse Resp BP Pulse Ox
97.4 F 79 15 106/61 95
01/21/24 23:54 01/21/24 23:54 01/21/24 23:54 01/21/24 23:54 01/21/24 23:54
Lab Results
01/22/24 04:39
01/22/24 04:39
Calcium 7.8 mg/dl (8.4-10.2) L 01/22/24 04:39
Physical Exam
-
Gen: NAD
Abd: soft, NT/ND, non-peritoneal, incisions c/d/i - no erythema, ecchymosis or drainage, old ostomy dressing c/d/i
[2024-01-22] MEDS: ENTEREG 12 MG PO ×2 (09:36→20:45)
[2024-01-22] MEDS: PROTONIX IV 40 MG IV (09:36)
[2024-01-22] MEDS: NSS (PRESERVATIVE FREE) 10 ML IV (09:37)
[2024-01-22] MEDS: NORMOSOL-R/PLASMALYTE-A 1000 IV (09:37)
[2024-01-22 11:28] VITALS: BP 124/71
[2024-01-22 14:56] VITALS: BP 114/69
--- NOTE | 2024-01-22 15:54 | CM ---
Met with pt and his at bedside
Pt reports he lives with his in a 3 story home; 5 steps to enter, 13 steps to 2nd fl
Retired, active, drives
DME - none
SNF/HH - no past hx
Has ride at discharge
PCP - Donna Lopez
Pharm - [facility]
CM will cont to follow for discharge needs
Plan - anticipate home no needs
[2024-01-22] MEDS: LOVENOX 40 MG SC (16:52)
[2024-01-22] MEDS: ZOFRAN 4 MG IV (20:45)
[2024-01-23 00:03] VITALS: BP 127/74
[2024-01-23] MEDS: TYLENOL PO ×2 (00:04→23:59)
[2024-01-23] MEDS: TORADOL 10 MG IV ×2 (04:18→13:27)
[2024-01-23] MEDS: NORMOSOL-R/PLASMALYTE-A 1000 IV (04:19)
[2024-01-23] MEDS: TYLENOL 650 MG PO ×5 (04:20→21:20)
[2024-01-23 06:59] VITALS: BP 117/77
--- NOTE | 2024-01-23 07:18 | W.PN.GS2 ---
Today's Communication / Plan
-
-- LRD
-- HLIV
-- Pain control: Tylenol, Toradol, Tramadol, IV Dilaudid PRN
-- Blanco removed
-- Dressing change and removal of fouzia tomorrow, cover with dry gauze daily
-- Tentative plan for DC tomorrow
Assessment / Plan
-
Patient is a 58 yo M POD#2 s/p laparoscopic colostomy reversal
AVSS
Labs unremarkable
Recovering well. No postoperative concerns. ROBF, advancing to LRD. Tentative plan for DC tomorrow.
-- LRD
-- Entereg
-- HLIV
-- Pain control: Tylenol, Toradol, Tramadol, IV Dilaudid PRN
-- DVT: Lovenox
-- GI: home PPI
-- OOB/ambulate
-- Blanco removed
-- Dressing change and removal of fouzia tomorrow, cover with dry gauze daily
-- Tentative plan for DC tomorrow
Subjective Data
-
Date of Service: January 23, 2024
No complaints or concerns. Pain well-controlled. Tolerated clears, no nausea or vomiting. Passing flatus and stool. Afebrile. Blanco out, due to void. Ambulating.
Objective Data
-
Intake and Output
01/22/24 01/23/24 01/24/24
06:59 06:59 06:59
Intake Total 1999 / 1999 2580 / 2580
Output Total 850 / 850 2550 / 2550
Balance 1150 / 1150 30 / 30
Intake:
Oral fluids 600 / 600 1380 / 1380
IV fluids (Total) 1400 / 1400 1200 / 1200
normosol 200 / 200
Output:
Urine, Blanco 850 / 850 2550 / 2550
Vital Signs
Temp Pulse Resp BP Pulse Ox
98.2 F 73 16 127/74 95
01/23/24 00:03 01/23/24 00:03 01/23/24 00:03 01/23/24 00:03 01/23/24 02:36
Lab Results
01/22/24 04:39
01/22/24 04:39
Calcium 7.8 mg/dl (8.4-10.2) L 01/22/24 04:39
Physical Exam
-
Gen: NAD
Abd: soft, minimal tenderness, ND, non-peritoneal, incisions c/d/i - no erythema, ecchymosis or drainage, ostomy site dressing c/d/i
[2024-01-23] MEDS: ENTEREG 12 MG PO ×2 (09:23→21:20)
[2024-01-23] MEDS: PROTONIX IV 40 MG IV (09:23)
[2024-01-23] MEDS: NSS (PRESERVATIVE FREE) 10 ML IV (09:23)
[2024-01-23 15:15] VITALS: BP 131/86
[2024-01-23] MEDS: LOVENOX 40 MG SC (17:58)
[2024-01-23 22:59] VITALS: BP 122/83
[2024-01-24] MEDS: TYLENOL PO (03:58)
--- NOTE | 2024-01-24 04:56 | PTCARENOTE ---
Pt OOB ambulating halls. Offers no complaints. Tolerating low res diet. Voiding w/o difficulty. Full physical assessment documented (refer to worklist). Plan of care ongoing.
[2024-01-24] MEDS: TYLENOL 650 MG PO (07:19)
[2024-01-24] MEDS: NSS (PRESERVATIVE FREE) IV (07:19)
[2024-01-24] MEDS: PROTONIX IV IV (07:19)
[2024-01-24] MEDS: ENTEREG 12 MG PO (07:19)
[2024-01-24 07:20] VITALS: BP 147/88
--- NOTE | 2024-01-24 08:04 | W.PN.GS2 ---
Today's Communication / Plan
-
dispo planning
Assessment / Plan
-
Patient is a 58 yo M POD#3 s/p laparoscopic colostomy reversal
AVSS
Recovering well. No postoperative concerns
Tolerating diet with +bm/flatus
Laura removed, dressing changed
-- LRD
-- Pain control: Tylenol, Toradol, Tramadol, IV Dilaudid PRN
-- DVT: Lovenox
-- GI: home PPI
-- OOB/ambulate
D/C to home today
Subjective Data
-
Date of Service: January 24, 2024
Patient seen and examined at bedside with Dr. Philip. Diallo n/v. Tolerating diet. Passing flatus, stools. Discomfort minimal.
Objective Data
-
Intake and Output
01/23/24 01/24/24 01/25/24
06:59 06:59 06:59
Intake Total 2580 / 2580 1780 / 1780
Output Total 2550 / 2550 600 / 600
Balance 30 / 30 1180 / 1180
Intake:
Oral fluids 1380 / 1380 1480 / 1480
IV fluids (Total) 1200 / 1200 300 / 300
Output:
Urine, Blanco 2550 / 2550
Urine, Voided 600 / 600
Other:
Number of approximated MODERATE 2
amounts of urine
Vital Signs
Temp Pulse Resp BP Pulse Ox
97.4 F 70 16 147/88 98
01/24/24 07:20 01/24/24 07:20 01/24/24 07:20 01/24/24 07:20 01/24/24 07:20
Lab Results
01/22/24 04:39
01/22/24 04:39
Calcium 7.8 mg/dl (8.4-10.2) L 01/22/24 04:39
Physical Exam
-
Gen: NAD
Abd: soft, NT, ND, non-peritoneal, incisions c/d/i - no erythema, ecchymosis or drainage, ostomy site dressing c/d/i, laura removed and dressing changed
--- NOTE | 2024-01-24 11:18 | CM ---
Pt discharged prior to seeing CM
Family member provided transport
Plan - home no needs
--- NOTE | 2024-01-24 14:20 | W.DCSUMMARY ---
Discharge Summary
Discharge Data
Date of Admission: 01/21/24
Date of Discharge: 01/24/24
-
Pending Results: No
Hospital Course
Mr Bundy is a 58 yo male with a history perforated diverticulitis and Mariano's procedure who presented for scheduled laparoscopic colostomy reversal. He tolerated the procedure well with good bowel recovery post operatively. He was able to have
diet advanced with passage of flatus and stools prior to discharge. He had minimal pain in the immediate post operative period and was transitioned to oral analgesics for discharge. He was discharged to home with outpatient follow up planned in the
coming weeks.
Discharge Plan
-
Patient Disposition: Home (Routine Discharge)
Discharge Diagnosis/Procedures: Laparoscopic colostomy reversal
Condition: Good
Diet: Low Fiber
Activity: No strenuous activity
Additional Activity: No heavy lifting (>20 lbs) or strenuous activities for 4 to 6 weeks postoperatively
Driving Restrictions: No driving if too sore or taking narcotics
Bathing Restrictions: OK to Shower
Wound Care: Keep incisions clean and dry. Glue will flake off in 2 to 3 weeks. Stitches will dissolve. Cover old ostomy site with dry gauze as needed to prevent pulling on jeff or any drainage. Use ice to the abdomen to reduce any bruising or
swelling.
Activity Restrictions/Additional Instructions:
Call for fevers (>100.5), nausea or vomiting, worsening abdominal pain
Referrals:
Donna Lopez DO [Family Provider] -
Matty Guillen MD [Active] - in two to four weeks
Prescriptions:
New
acetaminophen [acetaminophen] 325 mg tablet
650 mg PO Q4HPRN PRN (Reason: mild pain) Qty: 1 0RF
tramadol 50 mg tablet
50 mg PO Q6HPRN PRN (Reason: severe pain/breakthrough pain) Qty: 10 0RF
ibuprofen 200 mg tablet
400 - 600 mg PO Q6HPRN PRN (Reason: moderate pain) Qty: 1 0RF
Continued
Metamucil
3 cap PO DAILY
Pumpkin Seed Oil W/Saw [place]
3 cap PO DAILY
Sutab 1.479-0.188- 0.225 gram Tablet
0 tab PO PER PKG DIR
pantoprazole 40 mg tablet,delayed release (DR/EC)
40 mg PO DAILY
Discharge Orders:
Discharge Patient (As Directed); Ordered 01/24/24
Ordered By: Sonal Lyman
Discharge Date and Time
Discharge Date/Time: 01/24/24 09:23
Print Language: SLOVENIAN
== END 2024-01-24 09:23 | disposition home or self-care (01) | DRG 337 ==
LOC: 2 SOUTH 06:18
PROVIDERS: ADMITTING PHYSICIAN Surgery; FAMILY PHYSICIAN Family Medicine
PROC: 0DNP4ZZ Release Rectum, Percutaneous Endoscopic Approach (ICD-10-PCS; 2024-01-21)
PROC: 0DNW4ZZ Release Peritoneum, Percutaneous Endoscopic Approach (ICD-10-PCS; 2024-01-21)
PROC: 0DN84ZZ Release Small Intestine, Percutaneous Endoscopic Approach (ICD-10-PCS; 2024-01-21)
PROC: 0DSM4ZZ Reposition Descending Colon, Percutaneous Endoscopic Approach (ICD-10-PCS; 2024-01-21)
DX: Z43.3 Encounter for attention to colostomy (principal); K66.0 Peritoneal adhesions (postprocedural) (postinfection)
CPT/HCPCS: 88304; 36415; 80048; 85027; 93005

== ENCOUNTER 2024-09-04 00:14 | Inpatient (IN) | payer BC, SELFPAY ==
[2024-09-03 19:23] VITALS: BMI 27.4
[2024-09-03 19:25] VITALS: BP 139/82
--- NOTE | 2024-09-03 21:22 | ED.GENMED ---
History of Present Illness
<Elie Cedillo PA-C - Last Filed: 09/03/24 23:28>
General
Chief Complaint: DVT/Possible Blood Clot
Source: patient
Time Seen by Provider: 09/03/24 20:39
History of Present Illness
History of Present Illness:
Note:
CHIEF COMPLAINT(S)
Right leg swelling and pain.
HISTORY OF PRESENT ILLNESS
The patient is a 59-year-old male who presents with swelling in the right leg, primarily under the knee and extending to the ankle, persisting for a couple of weeks. He reports associated pain as the most severe in these regions. The patient denies
numbness, paresthesia, weakness. Additionally, he describes a recent onset of a persistent cough and feels slightly short of breath with exertion. He has a history of skin cancer diagnosed two months ago, treated with localized excision without
chemotherapy or radiation. Ultrasound findings, ordered from triage, reveal a deep vein thrombosis (DVT) in the right leg. Given the patients cough and dyspnea, there is concern for potential pulmonary embolism (PE) pending computed tomography (CT)
analysis. The patient has a familial history of clotting disorders noting his sister is on coumadin for 'blood clots'
ADDITIONAL HISTORY OBTAINED FROM SOURCES OTHER THAN THE PATIENT
According to the patient, his sister has a history of clotting disorders.
ALLERGIES
The patient denies any known drug allergies.
Past History
<Elie Cedillo PA-C - Last Filed: 09/03/24 23:28>
Past History
ED Past Medical History: Other (Diverticulosis, diverticulitis)
ED Past Surgical History: Orthopedic and Other (Hernia repair)
Social History
Tobacco: Non-smoker
Alcohol: Other
Drug: None
Personal:
Living: with family
Employment: Other
Family History
Family History: Other
Review of Systems
<Elie Cedillo PA-C - Last Filed: 09/03/24 23:28>
Review of Systems
All Other Systems: ROS reviewed and negative except as documented in HPI and ROS
Phy Exam
<Elie Cedillo PA-C - Last Filed: 09/03/24 23:28>
Physical Exam
Physical Exam:
GENERAL: Alert , in no apparent distress
EYE: conjunctiva clear
NECK: Supple, no significant adenopathy.
ENT: o/p clr, mmm.
CARDIAC: Regular rate and rhythm
LUNGS: Clear breath sounds bilaterally, no acute respiratory distress, no wheezes/rales/rhonchi
NEUROLOGICAL: Alert and oriented
SKIN: Warm and dry, skin intact.
MUSCULOSKELETAL: well perfused. RLE slightly more edematous than the left. Intact and equal pedal and tibial pulses
PSYCH: Normal and appropriate interaction.
Scores
<Elie Cedillo PA-C - Last Filed: 09/03/24 23:28>
Heart Failure Risk
Heart Failure Risk Score: Not Applicable
Heart Score for Chest Pain Patients
STEMI patient?: Not applicable
Withdrawal Assessment of Alcohol
Withdrawal Assessment Completed?: Not applicable
Course
<Elie Cedillo PA-C - Last Filed: 09/03/24 23:28>
Orders/Labs/Results
Orders:
Orders
09/03/24 19:31
US Legs, Right [US Periph Venous LOWER Ext RT] Urgent
Comment:
Reason For Exam: right leg pain and swelling
09/03/24 21:16
CT Chest PE Study Urgent
Comment:
Reason For Exam: known RLE DVT, cough, SOB
09/03/24 21:28
Basic Metabolic Panel Urgent
Complete Blood Count/With Diff Urgent
NT-proBNP Urgent
PTT Urgent
Prothrombin Time Urgent
Troponin I Urgent
09/03/24 23:00
Flush (0.9% Sodium Chloride) [Flush (Nss)] See Dose Instructions IV PER PROTOCOL
09/03/24 23:04
Heparin 7,100 units IV NOW STA
Nursing to Place Non Medication Order As Directed
Physician Order: PTT 6 hours after initial start of Heparin infusion
09/03/24 23:12
Admit/Transfer Patient As Directed
Co-Sign Provider:
Level of Care: Inpatient admission
Assign to:: Telemetry
Physician / Group: Alex
Diagnosis: PE
Reason for Telemetry: Other
Other Reason for Telemetry: Pulmonary embolism
Date to Stop Telemetry: 09/05/24
Time to Stop Telemetry: 11:00
Reason for Hospitalization: pulmonary embolism
Expected length of stay greater than two midnights?: Yes
ELOS- Estimated Length of Stay in days: 2
I certify the patient meets the requirements for IP care: Yes
09/03/24 23:13
PRN Pain Medication Management As Directed
May give lesser potent ordered pain med per pt: Yes
preference::
Protocol:: Medication orders for pain may be administered in a
manner that supports deferring to patient preference
when the pt is:
- Requesting an ordered lesser potent pain medication.
Least to most potent pain medications are defined
as: acetaminophen < NSAID < tramadol < opioids
(morphine, oxycodone, hydromorphone).
- Requesting a lesser dose of the same medication IF
ORDERED.
- Requesting a less intrusive route of administration
if both routes are prescribed by the provider (PO <
IV).
09/03/24 23:14
Code Status As Directed
Resuscitation Status: Full Code
09/03/24 23:15
Heparin 14454 Units/250 ml 25,000 units in 250 ml IV PER PROTOCOL
Weight to be used for heparin protocol in kilograms (kg):: 89
Protocol:: DVT/PE
PTT Goal Range to be used:: PTT 73 to 111 seconds
Order type:: Initial
INITIAL Infusion Dose (UNITS/KG/hr) & then follow protocol:: 18 units/kg/hr
Infusion Dose in UNITS/hr & then follow protocol (UNITS/hr):: 1,600
INFUSION RATE in mL/hr & then follow protocol (mL/hr):: 16
For DVT/PE algorithm, re-bolus for low PTT?: Yes
PTT less than or equal to 64 seconds:: Re-bolus 80 units/kg (max 10,000units). Increase by 400 units/hr
(+ 4mL/hr)
PTT 64.1 to 72.9 seconds:: Re-bolus 40 units/kg (max 5,000 units). Increase by 200 units/hr
(+ 2mL/hr)
PTT 73 to 111 seconds:: Target Range. No change in rate.
PTT 111.1 to 130.9 seconds:: Decrease rate by 200 units/hr (- 2 mL/hr)
PTT 131 to 199.9 seconds:: HOLD for 1 hr. Then decrease by 300 units/hr (- 3mL/hr)
PTT greater than or equal to 200 seconds:: HOLD for 2 hrs & Notify Provider. Then decrease by 400 units/hr
(- 4mL/hr)
Lab follow-up:: Each change, PTT q6h until 2 consecutive are therapeutic. Then
PTT daily.
09/05/24 11:00
DC Protocol for Telemetry ONCE
Abnormal Lab Results
09/03/24
21:28
Absolute Monos (auto) 0.7 H 10^3/uL
(0.1-0.6)
APTT 22.9 L Sec
(23.4-35.0)
09/03/24 21:28
09/03/24 21:28
Vital Signs
Initial and Last Documented VS:
Initial Vital Signs
Temp Pulse BP Pulse Ox
97.8 F 84 139/82 99
09/03/24 19:25 09/03/24 19:25 09/03/24 19:25 09/03/24 19:25
Last Documented Vital Signs
Temp Pulse BP Pulse Ox
97.8 F 84 139/82 99
09/03/24 19:25 09/03/24 19:25 09/03/24 19:25 09/03/24 21:22
<Noah Sanz, - Last Filed: 09/03/24 22:56>
Orders/Labs/Results
Orders:
Orders
09/03/24 19:31
US Legs, Right [US Periph Venous LOWER Ext RT] Urgent
Comment:
Reason For Exam: right leg pain and swelling
09/03/24 21:16
CT Chest PE Study Urgent
Comment:
Reason For Exam: known RLE DVT, cough, SOB
09/03/24 21:28
Basic Metabolic Panel Urgent
Complete Blood Count/With Diff Urgent
NT-proBNP Urgent
PTT Urgent
Prothrombin Time Urgent
Troponin I Urgent
09/03/24 23:00
Flush (0.9% Sodium Chloride) [Flush (Nss)] See Dose Instructions IV PER PROTOCOL
09/03/24 23:04
Heparin 7,100 units IV NOW STA
Nursing to Place Non Medication Order As Directed
Physician Order: PTT 6 hours after initial start of Heparin infusion
09/03/24 23:12
Admit/Transfer Patient As Directed
Co-Sign Provider:
Level of Care: Inpatient admission
Assign to:: Telemetry
Physician / Group: Alex
Diagnosis: PE
Reason for Telemetry: Other
Other Reason for Telemetry: Pulmonary embolism
Date to Stop Telemetry: 09/05/24
Time to Stop Telemetry: 11:00
Reason for Hospitalization: pulmonary embolism
Expected length of stay greater than two midnights?: Yes
ELOS- Estimated Length of Stay in days: 2
I certify the patient meets the requirements for IP care: Yes
09/03/24 23:13
PRN Pain Medication Management As Directed
May give lesser potent ordered pain med per pt: Yes
preference::
Protocol:: Medication orders for pain may be administered in a
manner that supports deferring to patient preference
when the pt is:
- Requesting an ordered lesser potent pain medication.
Least to most potent pain medications are defined
as: acetaminophen < NSAID < tramadol < opioids
(morphine, oxycodone, hydromorphone).
- Requesting a lesser dose of the same medication IF
ORDERED.
- Requesting a less intrusive route of administration
if both routes are prescribed by the provider (PO <
IV).
09/03/24 23:14
Code Status As Directed
Resuscitation Status: Full Code
09/03/24 23:15
Heparin 29041 Units/250 ml 25,000 units in 250 ml IV PER PROTOCOL
Weight to be used for heparin protocol in kilograms (kg):: 89
Protocol:: DVT/PE
PTT Goal Range to be used:: PTT 73 to 111 seconds
Order type:: Initial
INITIAL Infusion Dose (UNITS/KG/hr) & then follow protocol:: 18 units/kg/hr
Infusion Dose in UNITS/hr & then follow protocol (UNITS/hr):: 1,600
INFUSION RATE in mL/hr & then follow protocol (mL/hr):: 16
For DVT/PE algorithm, re-bolus for low PTT?: Yes
PTT less than or equal to 64 seconds:: Re-bolus 80 units/kg (max 10,000units). Increase by 400 units/hr
(+ 4mL/hr)
PTT 64.1 to 72.9 seconds:: Re-bolus 40 units/kg (max 5,000 units). Increase by 200 units/hr
(+ 2mL/hr)
PTT 73 to 111 seconds:: Target Range. No change in rate.
PTT 111.1 to 130.9 seconds:: Decrease rate by 200 units/hr (- 2 mL/hr)
PTT 131 to 199.9 seconds:: HOLD for 1 hr. Then decrease by 300 units/hr (- 3mL/hr)
PTT greater than or equal to 200 seconds:: HOLD for 2 hrs & Notify Provider. Then decrease by 400 units/hr
(- 4mL/hr)
Lab follow-up:: Each change, PTT q6h until 2 consecutive are therapeutic. Then
PTT daily.
09/05/24 11:00
DC Protocol for Telemetry ONCE
Abnormal Lab Results
09/03/24
21:28
Absolute Monos (auto) 0.7 H 10^3/uL
(0.1-0.6)
APTT 22.9 L Sec
(23.4-35.0)
09/03/24 21:28
09/03/24 21:28
Vital Signs
Initial and Last Documented VS:
Initial Vital Signs
Temp Pulse BP Pulse Ox
97.8 F 84 139/82 99
09/03/24 19:25 09/03/24 19:25 09/03/24 19:25 09/03/24 19:25
Last Documented Vital Signs
Temp Pulse BP Pulse Ox
97.8 F 84 139/82 99
09/03/24 19:25 09/03/24 19:25 09/03/24 19:25 09/03/24 21:22
<Elie Cedillo PA-C - Last Filed: 09/03/24 23:28>
MDM/Problems Addressed
Differential Diagnosis Includes:
The Differential Diagnosis includes, in no particular order and is not limited to:
1. Deep vein thrombosis (DVT)
2. Pulmonary embolism (PE)
3. Chronic venous insufficiency
4. Lymphedema
5. Cellulitis
6. Heart failure
7. Chronic obstructive pulmonary disease (COPD) exacerbation
8. Malignancy
9. Thrombophilia or hypercoagulable state
MDM/Problems Addressed:
- Initiate intravenous access and draw necessary blood for laboratory analysis.
- Obtain a CT scan to evaluate for pulmonary embolism.
- Discuss anticoagulation management with potential adjustment to direct oral anticoagulants, considering the patients history and current presentation.
- If PE is confirmed but not centrally located or causing severe complications, discharge on anticoagulation therapy with outpatient follow-up for continued monitoring.
- Educate the patient on signs of bleeding and safety precautions while on anticoagulation therapy. Recommend follow-up with a clock and watch hands painter for further evaluation of potential hereditary clotting disorder.
<Elie Cedillo PA-C - Last Filed: 09/03/24 23:28>
*Radiology
Radiology exam reviewed: radiology read reviewed
*Pulse Oximetry
SaO2: 99
*Critical Care Note
Total Time (30-74mins, 75-104mins- exclusive of procedures): 30
comment:
Critical care statement: A total of 30 minutes of critical care time was provided for this patient. This includes management of unstable vital signs, evaluation of the patient at bedside, reviewing the patient's pertinent medical records, discussion
with consultants, review of old EKGs and review of pertinent medical records. This time with separate from time utilized to perform the aforementioned documented procedures
<Elie Cedillo PA-C - Last Filed: 09/03/24 23:28>
Patient Management
Discussion with other providers: Hospitalist
Escalation/DeEscalation of care consider admission/obs:
Patient CT scan shows acute bilateral pulmonary embolism, no evidence for right heart strain. Troponin and BNP are within normal limits. Will admit for heparin and close monitoring. Hospitalist team aware and accepts for continued evaluation and
treatment
ED Attending Note
<Elie Cedillo PA-C - Last Filed: 09/03/24 23:28>
-
Portions of this chart may have been created with voice recognition software.� Occasional wrong word or��sound alike� substitutions may have occurred due to the inherent limitations of voice recognition software.
<Noah Sanz DO - Last Filed: 09/03/24 22:56>
ED Attending Note
I performed the substantive portion of visit, reviewed & personally made and approve the management plan that is documented in note by myself or BLU.: Yes
ED Attending Note:
Bilateral pulmonary emboli. IV heparin. Admit
Discharge Plan
Departure
Patient Disposition: Admit
Date of Disposition: 09/03/24
Time of Disposition: 23:11
Presentation/result/management discussed w/ accepting MD/DO: Hospitalist
Discharge Problem:
Pulmonary embolism, Acute deep vein thrombosis (DVT) of left lower extremity
Prescriptions:
No Action
Metamucil
3 cap PO DAILY
Pumpkin Seed Oil W/Saw Palmett
3 cap PO DAILY
Sutab 1.479-0.188- 0.225 gram Tablet
0 tab PO PER PKG DIR
pantoprazole 40 mg tablet,delayed release (DR/EC)
40 mg PO DAILY
acetaminophen [acetaminophen] 325 mg tablet
650 mg PO Q4HPRN PRN (Reason: mild pain) Qty: 1 0RF
tramadol 50 mg tablet
50 mg PO Q6HPRN PRN (Reason: severe pain/breakthrough pain) Qty: 10 0RF
ibuprofen 200 mg tablet
400 - 600 mg PO Q6HPRN PRN (Reason: moderate pain) Qty: 1 0RF
Referrals:
Donna Lopez DO [Family Provider, Family Practice]
Interventions
Interventions:
*Risk Screen - Suicide Last Done: 09/03/24 19:29
*General Assessment Last Done: 09/03/24 21:38
*Neglect/Abuse Screening Last Done: 09/03/24 19:31
*ED- Fall Risk Assessment Last Done: 09/03/24 21:38
*ED COVID-19 Vaccine History Last Done: 09/03/24 21:38
ED- Cardiac Assessment Last Done: 09/03/24 21:39
ED- Pulmonary Assessment Last Done: 09/03/24 21:39
ED-Peripheral Vascular Assessment Last Done: 09/03/24 21:39
ED-Skin Assessment Last Done: 09/03/24 21:39
Discharge Date and Time
Print Language: MARSHALLESE
[2024-09-03 21:51] LABS: INR 0.88; PT 12.3 Sec (11.4-14.6)
[2024-09-03 21:55] LABS: % Basophils 0.7 % (0-2); % Eosinophils 3.7 % (0-6); % Immature Granulocytes 0.3 % (0-0.5); % Monocytes 9.2 % (1.7-9.3); % Neutrophils 62.1 % (42.2-75.2); Absolute Basophils 0.1 10^3/uL (0-0.2); Absolute Eosinophils 0.3 10^3/uL (0-0.7); Absolute Lymphocytes 1.8 10^3/uL (1.2-3.4); Absolute Monocytes 0.7 10^3/uL (0.1-0.6); Absolute Neutrophils 4.6 10^3/uL (1.4-6.5); Hematocrit 44.9 % (39.0-52.0); Hemoglobin 16.1 g/dL (13.0-18.0); Mean Corp Hgb Conc. 35.9 g/dL (33.0-37.0); Mean Corpuscular Volume 86.5 fL (80.0-94.0); Nucleated Red Blood Cells % 0.3 % (-); Red Blood Cell Count 5.19 10^6/uL (4.70-6.10); Red Cell Dist. Width 12.4 % (11.5-14.5); White Blood Cell Count 7.4 10^3/uL (4.8-10.8)
[2024-09-03 22:05] LABS: NT-proBNP < 20.0 pg/ml; Troponin I < 0.012 ng/ml
[2024-09-03 22:15] LABS: APTT 22.9 Sec (23.4-35.0)
[2024-09-03 22:19] LABS: Platelet Count 201 10^3/uL (130-400)
[2024-09-03 22:24] LABS: Blood Urea Nitrogen 18 mg/dl (9-20); Calcium 9.5 mg/dl (8.4-10.2); Carbon Dioxide 28 mmol/L (22-30); Chloride 106 mmol/L (98-107); Estimated Creatinine Clearance 76 ml/min; Glucose 89 mg/dl (70-99); Potassium 4.5 mmol/L (3.5-5.1); Sodium 139 mmol/L (135-145); eGFR > 60.00
--- NOTE | 2024-09-03 23:17 | HPS.HSE ---
Family Physician
-
Family Physician: Donna Lopez
Chief Complaint
-
Right lower extremity
History of Present Illness
This is a 59-year-old who has a past medical history of perforated diverticulitis admitted to the hospital 1 year ago status post colostomy presenting to the emergency department with right lower extremity swelling.
Patient reported that he been having lower extremity pain for about 2 to 3 weeks. He reports the pain started in the popliteal., And then became associated with the calf as well as the lower thigh posteriorly. About 2 to 3 days ago he noticed
swelling in the right lower extremity. Denies any redness. He denies any chest pain. Denies any shortness of breath or dyspnea on exertion.
Patient reported that he has had no recent prolonged travels. He had no recent immobilization. He does report family history with 2 siblings with unprovoked DVT and PE. One of the family members has had genetic testing which was negative.
In the emergency department he was afebrile, blood pressure was 140/80 with a pulse of 84. He was satting 99% on room air.
Troponin was negative. BNP was negative. CBC shows no acute changes. Electrolytes BUN/creatinine were all within normal limits. Peripheral workup showed acute occlusive thrombus in the right femoral, popliteal, peroneal, and posterior tibial
veins. Additionally CT PE with acute bilateral pulmonary embolism. No right heart strain.
Medical History
Past Medical History
Past Medical History: Reports Other
Additional Past Medical History:
Diverticular Disease
Past Surgical History: Reports Other
Additional Past Surgical History:
Right Inguinal Hernia Repair
Umbilical Hernia Repair
Right ACL Repair (x 3)
Social History
Tobacco: Non-smoker
Alcohol: Occasional
Drug: None
Personal:
Living: With Family
Family History
Family History: Other (Colon Cancer, Melanoma, venous thromboembolism )
Allergies / Home Medications
Allergies reflects when Allergies were last updated in [facility].
Home Medications with original date entered in [facility]
Allergy/Medication List:
Allergies
Allergy/AdvReac Type Severity Reaction Status Date / Time
seasonal Allergy Unknown Uncoded 10/11/23 01:34
Home Medications
psyllium 1 packet PO DAILY 10/11/23
Review of Systems
-
Constitutional: Reports No Symptoms
EENT: Reports No Symptoms
Respiratory: Reports No Symptoms
Cardiac: Reports No Symptoms
Abdomen/GI: Reports No Symptoms
: Reports No Symptoms
Musculoskeletal: Reports Other (R calf pain and R LE swelling)
Skin: Reports No Symptoms
Neurological: Reports No Symptoms
Endocrine: Reports No Symptoms
Hematologic/Lymphatic: Reports No Symptoms
Psych: Reports No Symptoms
Physical Exam
Vital Signs
Vital Signs
Temp Pulse BP Pulse Ox
97.8 F 84 139/82 99
09/03/24 19:25 09/03/24 19:25 09/03/24 19:25 09/03/24 21:22
Physical Exam
General: Well Developed, Well Nourished and No Apparent Distress
HEENT: NormoCephalic, Moist mucous membranes and Atraumatic
Respiratory: Clear
Cardiac: S1/S2 and Regular Rhythm; No Murmur or Rub
GI: Soft, Non Tender, Non Distended and Normal Bowel Sounds; No Organomegaly
Rectal: Deferred by Provider
Musculoskeletal: No Clubbing, No Cyanosis and No Edema
Skin: No Rash
Neuro: Nonfocal/grossly intact
Hematologic/Lymphatic: No Lymphadenopathy
Psych: Calm
Laboratory Results
-
09/03/24 21:28
09/03/24 21:28
Laboratory Results
PT 12.3 Sec (11.4-14.6) 09/03/24 21:28
INR 0.88 09/03/24 21:28
APTT 22.9 Sec (23.4-35.0) L 09/03/24 21:28
Troponin I < 0.012 ng/ml 09/03/24 21:28
Data Reviewed
-
CT Scan: Report Reviewed by me
Ultrasound: Report Reviewed by me
Lab Data: Labs Reviewed by me
Impression/Plan
-
IMPRESSION:
59-year-old male with unprovoked right lower extremity DVT as well as bilateral pulmonary embolism. There is no RV strain. Troponin is negative. BNP is normal. He hemodynamically stable and does not require any supplemental oxygen. Patient has
no evidence of a provoked venous thromboembolism. He does have family history with 2 siblings with DVT and PE individually. One had genetic testing that was negative.
PLAN:
Venous Thrombo Embolism - Acute RLE DVT and chris PE. Stable, no strain, normal labs. Unprovoked. Markedly positive family hx of unprovoked VTE.
-- admit to telemetry
- given burden, will continue heparin gtt for now
- analgesics as neeed
- given burden and family history consult hematology
- check covid test but no recent respiratory symptoms
- echo
Code status - Full Code
[2024-09-03] MEDS: HEPARIN 25000 UNITS/250 ML IV (23:37)
[2024-09-03] MEDS: HEPARIN 7100 UNITS IV (23:37)
[2024-09-03 23:43] VITALS: BP 113/79
[2024-09-04] VITALS: BP 124/82
[2024-09-04 00:02] LABS: COVID-19 Antigen Negative (Negative)
[2024-09-04 01:31] VITALS: BP 126/78
[2024-09-04 03:24] VITALS: BP 115/71
--- NOTE | 2024-09-04 04:07 | PTCARENOTE ---
Patient arrived from ED with Heparin drip running at 16 ml/hr. PTT ordered for 0537. Patient oriented to room and call ramos.
[2024-09-04 06:13] LABS: INR 0.92; PT 12.7 Sec (11.4-14.6)
[2024-09-04 06:30] LABS: HDL Cholesterol 35 mg/dl; LDL Cholesterol, Calculated 145 mg/dl; Total Cholesterol 211 mg/dl (50-199); Triglyceride 155 mg/dl (10-149); Very Low Density Lipoprotein 31 mg/dl (0-30)
[2024-09-04 07:00] VITALS: BP 128/99
--- NOTE | 2024-09-04 07:50 | CON.ONC ---
Consultation
-
Date Consultation Requested: 09/04/24
Date Consultation Performed: 09/04/24
Requesting Provider: mt
Impression
Impression
Unprovoked right lower extremity DVT and pulmonary emboli
Left forearm melanoma
Plan
Plan
Currently on heparin drip
Anticipate conversion to DOAC
Antiphospholipid antibody panel now
Follow-up pathology from recent melanoma surgery on the left forearm
Baseline D-dimer
Follow-up in the office to review additional more extensive thrombotic panel in 8 to 12 weeks
Patient supplied with business card
Patient History
History of Present Illness
This is a 59-year-old who has a past medical history of perforated diverticulitis admitted to the hospital 1 year ago status post colostomy presenting to the emergency department with right lower extremity swelling. Patient reported that he been
having lower extremity pain for about 2 to 3 weeks. In retrospect he noticed he may have had shortness of breath when lying flat on occasion over the past few weeks. Currently denies shortness of breath or palpitations. Patient reported that he
has had no recent prolonged travels. 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 He does report family history with 2 siblings with unprovoked DVT and PE. 1 sister is on lifelong
anticoagulation with warfarin. One of the family members has had genetic testing which was negative. Reports recent resection of a melanoma in the left arm 4 to 5 weeks ago.
Past-Medical/Surgical History
Past Medical History
Diverticulosis
Past Surgical History
Right Inguinal Hernia Repair
Umbilical Hernia Repair
Right ACL Repair (x 3)
Social History
Tobacco: Non-smoker
Alcohol: Occasional
Drug: None
Personal:
Living: With Family
Family History
Colon Cancer, Melanoma, venous thromboembolism
Patient Medication
�Medication �Instructions �Recorded �Confirmed �Last Taken �Type
Metamucil 4 cap PO DAILY Constipation 01/14/24 09/03/24 09/03/24 History
Pumpkin Seed Oil W/Saw Palmett 3 cap PO DAILY Supplement 01/14/24 09/03/24 09/03/24 History
Lactobacillus acidophilus 1 cap PO DAILY 09/03/24 09/03/24 09/03/24 History
(Acidophilus capsule)
ibuprofen 200 mg tablet 600 mg PO Q6HPRN PRN mild pain 09/03/24 09/03/24 2 Days Ago History
~09/01/24
omeprazole 20 mg capsule,delayed 20 mg PO DAILY PRN GERD 09/03/24 09/03/24 3 Days Ago History
release ~08/31/24
Active Medications
Generic Name Dose Route Start Last Admin
Trade Name Freq PRN Reason Stop Dose Admin
Acetaminophen 650 mg 09/04/24 00:51
Acetaminophen 325 Mg Tablet PO 10/02/24 00:50
Q4HPRN PRN
mild pain/temp > 100.4 F
Heparin Sodium 25,000 units in 250 mls @ 0 mls/hr 09/03/24 23:15 09/03/24 23:37
Heparin 27820 Units/250 Ml IV 250 mls
PER PROTOCOL JANIYA Administration
Protocol
Per Protocol
Pantoprazole Sodium 40 mg 09/04/24 08:00
Pantoprazole 40 Mg Delayed Release Tablet PO 10/02/24 07:59
DAILY JANIYA
Polyethylene Glycol 17 grams 09/04/24 08:00
Polyethylene Glycol Powder 17 Grams Packet PO 10/02/24 07:59
DAILY JANIYA
Sodium Chloride 0 flush 09/03/24 23:00
Sodium Chloride 0.9% (Flush) Syringe IV 10/01/24 22:59
PER PROTOCOL JANIYA
Review of Systems
-
Review of systems unremarkable except with the exception of those symptoms reviewed in the HPI on a 12 point review.
Physical Exam
-
Physical Exam
General: Well Developed, Well Nourished and No Apparent Distress
HEENT: Moist mucous membranes and Atraumatic
Respiratory: Clear
Cardiac: S1/S2 and Regular Rhyth
GI: Soft, Non Tender, Non Distended and Normal Bowel Sounds; No Organomegaly
Musculoskeletal: No Clubbing, No Cyanosis and No Edema
Skin: No Rash
Neuro: Nonfocal/grossly intact
Hematologic/Lymphatic: No Lymphadenopathy
Psych: Calm
Labs
Lab Results
WBC 7.4 10^3/uL (4.8-10.8) 09/03/24:
RBC 5.19 10^6/uL (4.70-6.10) 09/03/24:
Hgb 16.1 g/dL (13.0-18.0) 09/03/24:
Hct 44.9 % (39.0-52.0) 09/03/24:
MCV 86.5 fL (80.0-94.0) 09/03/24:
MCH 31.0 pg (27.0-31.0) 09/03/24:
MCHC 35.9 g/dL (33.0-37.0) 09/03/24:
RDW 12.4 % (11.5-14.5) 09/03/24:
Plt Count 201 10^3/uL (130-400) 09/03/24:
MPV Not Reportable 09/03/24:
Abs Immat Gran (auto) 0.0 10^3/uL (0-0.05) 09/03/24:
Absolute Neuts (auto) 4.6 10^3/uL (1.4-6.5) 09/03/24:
Absolute Lymphs (auto) 1.8 10^3/uL (1.2-3.4) 09/03/24:
Absolute Monos (auto) 0.7 10^3/uL (0.1-0.6) H 09/03/24:
Absolute Eos (auto) 0.3 10^3/uL (0-0.7) 09/03/24:
Absolute Basos (auto) 0.1 10^3/uL (0-0.2) 09/03/24:
Immature Gran % 0.3 % (0-0.5) 09/03/24
Neutrophils % 62.1 % (42.2-75.2) 09/03/24
Lymphocytes % 24.0 % (20.5-51.1) 09/03/24:
Monocytes % 9.2 % (1.7-9.3) 09/03/24
Eosinophils % 3.7 % (0-6) 09/03/24
Basophils % 0.7 % (0-2) 09/03/24
Creatinine 1.1 mg/dL (0.7-1.3) 09/03/24:
Vital Signs
Vital Signs
Temp Pulse Resp BP Pulse Ox
97.9 F 76 14 115/71 99
09/04/24 03:24 09/04/24 03:24 09/04/24 03:24 09/04/24 03:24 09/04/24 03:24
--- NOTE | 2024-09-04 09:23 | CM ---
Addendum entered by Koko Layne 09/04/24 11:44:
Patient will d/c home today
CM consulted for [employer] pricing
CM called rx plan, spoke w/ Armida to review patient's coverage benefits and estimated co pay
For 30 day retail supply- $19.32, 90 day supply home delivery- $40
Updated patient bedside w/ cost and provided 30 day coupon
Original Note:
Initial assessment completed. Patient is a 59-year-old male who has a past medical history of perforated diverticulitis admitted to the hospital 1 year ago status post colostomy presenting to the emergency department with right lower extremity
swelling.
Patient resides w/spouse in a [facility], 4 steps to enter. Independent in all areas, no DME. Patient is a lumberjack, very active. Denies SNF/HC hx. OP therapy in the past for torn ligaments.
Address, point of contact and insurance verified
PCP: Donna Lopez
Pharmacy: [facility]
Plan: Home, no needs anticipated
[2024-09-04 10:05] LABS: D-Dimer 3.23 ug/mlFEU (0.00-0.50)
[2024-09-04 10:24] LABS: Glycohemoglobin (HgbA1c) 5.4 % (4.0-5.6)
[2024-09-04 11:00] VITALS: BP 112/73
--- NOTE | 2024-09-04 11:09 | W.DCSUMMARY ---
Discharge Summary
Discharge Data
Date of Admission: 09/04/24
Date of Discharge: 09/04/24
-
Pending Results: No
Hospital Course
59-year-old who has a past medical history of perforated diverticulitis
Presented with right lower extremity pain that was ongoing for past 2 to 3 weeks, typically behind the knee. Approximately 2 to 3 days prior began noticing right lower extremity swelling and redness. Found to have a D-dimer of 3.2. DVT study
positive for acute DVT in the right femoral/popliteal/peroneal and posterior tibial veins. This was followed up with a chest CT that demonstrated acute bilateral pulmonary arterial embolic disease. No CTA evidence of pulmonary artery hypertension
or right heart strain. Troponin and BNP negative. Started on a heparin drip. Evaluated by hematology which recommended outpatient follow-up. Did not believe required additional inpatient needs and recommended outpatient 2D echocardiogram with
transition of heparin drip to Eliquis 10 mg twice a day for 7 days followed by 5 mg twice a day indefinitely.
Follow up with PCP for outpatietn 2d echo script
DVT Study
IMPRESSION:
ACUTE DEEP VENOUS THROMBOSIS in the right femoral, popliteal, peroneal, and posterior tibial veins.
CTPE
IMPRESSION:
1. ACUTE BILATERAL PULMONARY ARTERIAL EMBOLIC DISEASE.
2. No CTA evidence for pulmonary arterial hypertension or right heart strain.
3. Mild elevation of the right hemidiaphragm.
4. Minimal dependent subsegmental atelectasis.
5. Cholelithiasis.
6. Mild splenomegaly.
Seen and examined the day of discharge. No new complaints. No acute overnight events.
States that he has swelling of his right lower extremity otherwise no significant pain. No shortness of breath.
NAD
Scleral Anicteric
MMM
No JVD
CTABL
RRR, S1/S2
Soft, NT, ND, BS+
Warm, Dry
AAOx3
Calm
More than 30 minutes spent in discharge including
Final examination of the patient
Summarizing hospital stay
Instructions for continuing care to all relevant caregivers
Preparation of discharge records, prescriptions, and referral forms
Total time spent (in minutes): 33mins
Discharge Plan
-
Patient Disposition: Home (Routine Discharge)
Discharge Diagnosis/Procedures: Acute VTE
Condition: Good
Diet: As tolerated
Activity: As tolerated
Activity Restrictions/Additional Instructions:
Presented with right lower extremity pain that was ongoing for past 2 to 3 weeks, typically behind the knee. Approximately 2 to 3 days prior began noticing right lower extremity swelling and redness. Found to have a D-dimer of 3.2. DVT study
positive for acute DVT in the right femoral/popliteal/peroneal and posterior tibial veins. This was followed up with a chest CT that demonstrated acute bilateral pulmonary arterial embolic disease. No CTA evidence of pulmonary artery hypertension
or right heart strain. Troponin and BNP negative. Started on a heparin drip. Evaluated by hematology which recommended outpatient follow-up. Did not believe required additional inpatient needs and recommended outpatient 2D echocardiogram with
transition of heparin drip to Eliquis 10 mg twice a day for 7 days followed by 5 mg twice a day indefinitely.
Follow up with PCP for outpatietn 2d echo script
DVT Study
IMPRESSION:
ACUTE DEEP VENOUS THROMBOSIS in the right femoral, popliteal, peroneal, and posterior tibial veins.
CTPE
IMPRESSION:
1. ACUTE BILATERAL PULMONARY ARTERIAL EMBOLIC DISEASE.
2. No CTA evidence for pulmonary arterial hypertension or right heart strain.
3. Mild elevation of the right hemidiaphragm.
4. Minimal dependent subsegmental atelectasis.
5. Cholelithiasis.
6. Mild splenomegaly.
Referrals:
Donna Lopez DO [Family Provider, Family Practice]
Additional Discharge Medication Instructions: avoid NSAID use
Prescriptions:
New
pantoprazole 40 mg Tablet,Delayed Release (Dr/Ec)
40 mg PO DAILY Qty: 30 0RF
Eliquis 5 mg tablet
10 mg PO BID Qty: 14 0RF
Eliquis 5 mg tablet
5 mg PO BID Qty: 60 0RF
Continued
Metamucil
4 cap PO DAILY
Pumpkin Seed Oil W/Saw Palmett
3 cap PO DAILY
omeprazole 20 mg Capsule,Delayed Release(Dr/Ec)
20 mg PO DAILY PRN (Reason: GERD)
Acidophilus Capsule
1 cap PO DAILY
Discontinued
ibuprofen 200 mg Tablet
600 mg PO Q6HPRN PRN (Reason: mild pain)
Discharge Orders:
Discharge Patient (As Directed); Ordered 09/04/24
Ordered By: Noman Solis
Discharge Date and Time
Print Language: FAROESE
[2024-09-04 12:31] LABS: APTT 97.6 Sec (23.4-35.0)
[2024-09-04] MEDS: ELIQUIS 10 MG PO (12:37)
[2024-09-04 14:15] VITALS: BP 117/72
[2024-09-06 01:58] LABS: Beta-2-Glycoprotein I Ab. IgA <10 SAU (<=20); Beta-2-Glycoprotein I Ab. IgG <10 SGU (<=20); Beta-2-Glycoprotein I Ab. IgM <10 SMU (<=20)
[2024-09-06 22:40] LABS: Phosphatidylserine Ab, IgA 0 APS (0-19); Phosphatidylserine Ab, IgG 0 GPS (0-15); Phosphatidylserine Ab, IgM 0 MPS (0-21)
[2024-09-06 23:45] LABS: Anti-Xa Qualitative Interp Present (Not Present); Anticoagulant Med Neutralizati Hepzyme (Not Performed); Hexagonal Phospholipid Confirm Not Performed s (<=7.9); Neutralized PTT-LA Ratio 1.06 (<=1.20); Neutralized dRVTT Screen Ratio Not Performed (<=1.20); PTT-LA Ratio 3.35 (<=1.20); Prothrombin Time 13.2 s (12.0-15.5); Thrombin Time >150.0 s (<=19.5); dRVTT 1.1 Mix Ratio Not Performed (<=1.20); dRVTT Confirmation Ratio Not Performed (<=1.20); dRVTT Screen Ratio 1.08 (<=1.20)
== END 2024-09-04 15:05 | disposition home or self-care (01) | DRG 299 ==
LOC: 4 WEST ACU 00:14
PROVIDERS: Physician Assistant Medical; ADMITTING PHYSICIAN Internal Medicine; ATTENDING PHYSICIAN Hospitalist; CONSULT PHYSICIAN Internal Medicine Hematology & Oncology; EMERGENCY PHYSICIAN Emergency Medicine; FAMILY PHYSICIAN Family Medicine
DX: I82.451 Acute embolism and thrombosis of right peroneal vein (principal); I26.99 Other pulmonary embolism without acute cor pulmonale; I82.411 Acute embolism and thrombosis of right femoral vein; I82.431 Acute embolism and thrombosis of right popliteal vein; I82.441 Acute embolism and thrombosis of right tibial vein; K80.20 Calculus of gallbladder without cholecystitis without obstruction; Z87.19 Personal history of other diseases of the digestive system; Z93.3 Colostomy status; Z80.0 Family history of malignant neoplasm of digestive organs; Z80.8 Family history of malignant neoplasm of other organs or systems; Z11.52 Encounter for screening for COVID-19; Z85.820 Personal history of malignant melanoma of skin
CPT/HCPCS: 71275; 80048; 80061; 83036; 83880; 84484; 85025; 85379; 85610; 85613; 85730; 86146; 86147; 86148; 87811; 93971; 94761; 96374; 96376; 99291; Q9967

== ENCOUNTER → 2024-09-09 09:20 | Outpatient (REF) | payer OTHER, SELFPAY | LOC: RAD 09:20 | PROVIDERS: ATTENDING PHYSICIAN Family Medicine | DX: I26.94 Multiple subsegmental thrombotic pulmonary emboli without acute cor pulmonale (principal) | CPT/HCPCS: 93306; 93971 ==

== ENCOUNTER 2024-09-11 13:07 | Emergency (ER) | payer OTHER, SELFPAY ==
[2024-09-11 13:10] VITALS: BP 124/83
--- NOTE | 2024-09-11 14:38 | ED.GENMED ---
History of Present Illness
General
Chief Complaint: Cough
Source: patient
Exam Limitations: none
Time Seen by Provider: 09/11/24 14:16
History of Present Illness
History of Present Illness:
59yoM who was recently hospitalized from 09/03/24-09/04/24 for DVT/PE presenting for evaluation of concern for a septic pulmonary embolism. He is currently on Eliquis and reports compliance. His PCP ordered an echocardiogram which he went for 2 days
ago. His saw his echocardiogram results and saw 'septic pulmonary embolism' and became concerned. She called his PCP and was told to go to the ED for evaluation. Patient is asymptomatic at this time and denies any fevers, chest pain,
shortness of breath, leg swelling, calf pain.
Echocardiogram results from 09/09/24 showed an EF of 60-65% with normal RV size and function. The indication that was selected for the echo was septic pulmonary embolism without acute cor pulmonale.
Past History
Past History
ED Past Medical History: Other (Diverticulosis, diverticulitis)
ED Past Surgical History: Orthopedic and Other (Hernia repair)
Social History
Tobacco: Non-smoker
Alcohol: Other
Drug: None
Personal:
Living: with family
Employment: Other
Family History
Family History: Other
Phy Exam
General Physical Exam
General Presentation: well appearing and no apparent distress
General Skin: warm and dry
General Habitus: normal
General Mental: alert
ENT Exam
ENT Exam: normocephalic
Cardiovascular Exam
Cardiovascular Exam: regular rate/rhythm and no edema
Pulmonary Exam
Pulmonary Exam: lungs clear, no respiratory distress, no rales, no crackles, no rhonchi and no wheezing
Neurological Exam
Neurological Exam: alert
Jim Coma Scale
Eye Opening: Spontaneous
Verbal Response: Oriented
Motor Response: Obeys Commands
GCS Total Score: 15
Skin Exam
Skin Exam: normal color and warm/dry
Psychiatric Exam
Psychiatric Exam: normal mood/affect
Course
Orders/Labs/Results
Orders:
Orders
09/11/24 13:13
EKG [Electrocardiogram (*1)] Urgent
Reason for Study: Shortness of Breath
09/11/24 13:14
EKG- Treatment ONCE
Vital Signs
Initial and Last Documented VS:
Initial Vital Signs
Temp Pulse Resp BP Pulse Ox
98.3 F 72 16 124/83 98
09/11/24 13:10 09/11/24 13:10 09/11/24 13:10 09/11/24 13:10 09/11/24 13:10
Last Documented Vital Signs
Temp Pulse Resp BP Pulse Ox
98.3 F 72 16 124/83 98
09/11/24 13:10 09/11/24 13:10 09/11/24 13:10 09/11/24 13:10 09/11/24 14:42
MDM/Problems Addressed
Differential Diagnosis Includes:
59yoM here because saw 'septic pulmonary embolism' on echo report in patient portal and became concerned. Recently hospitalized for DVT/PE. I reviewed the echo results as well as hospitalization records. The PCP selected 'septic pulmonary
embolism without acute cor pulmonale' for the indication for the echocardiogram. Echo results with normal EF and RV function. He is asymptomatic at this time and has no fevers. No murmur on exam and vitals are normal.
Patient and provided with reassurance that 'septic PE' was simply the indication selected by the PCP for the test and not the actual result. No mention of infection in documentation from recent admission. He is stable for discharge with
outpatient f/u. ED return precautions reviewed.
*Pulse Oximetry
SaO2: 98
Oxygen Mode of Delivery: Room air
Patient hypoxic: no (98%)
*Critical Care Note
Total Time (30-74mins, 75-104mins- exclusive of procedures): Not Applicable
ED Attending Note
-
Portions of this chart may have been created with voice recognition software.� Occasional wrong word or��sound alike� substitutions may have occurred due to the inherent limitations of voice recognition software.
Discharge Plan
Departure
Patient Disposition: Home (Routine Discharge)
Date of Disposition: 09/11/24
Time of Disposition: 14:34
Patient with high blood pressure during this ER visit?: No
Discharge Problem:
Reassurance given, Feared condition not demonstrated
Instructions: Pulmonary embolism - Discharge instructions
Prescriptions:
No Action
Metamucil
4 cap PO DAILY
Pumpkin Seed Oil W/Saw Palmett
3 cap PO DAILY
omeprazole 20 mg Capsule,Delayed Release(Dr/Ec)
20 mg PO DAILY PRN (Reason: GERD)
Acidophilus Capsule
1 cap PO DAILY
pantoprazole 40 mg Tablet,Delayed Release (Dr/Ec)
40 mg PO DAILY Qty: 30 0RF
Eliquis 5 mg tablet
10 mg PO BID Qty: 14 0RF
Eliquis 5 mg tablet
5 mg PO BID Qty: 60 0RF
Referrals:
Donna Lopez DO [Family Provider, Family Practice]
Activity Restrictions/Additional Instructions:
Continue taking your Eliquis.
Please follow-up with your family doctor. Return to the ER with any shortness of breath, chest pain, or fevers.
Interventions
Interventions:
*Risk Screen - Suicide Last Done: 09/11/24 13:10
*Nursing Disposition Last Done: 09/11/24 14:37
Discharge Date and Time
Discharge Date/Time: 09/11/24 14:37
Print Language: HUNGARIAN
== END 2024-09-11 14:37 | disposition home or self-care (01) ==
LOC: EMR 13:07
PROVIDERS: EMERGENCY PHYSICIAN Emergency Medicine; FAMILY PHYSICIAN Family Medicine
DX: Z71.1 Person with feared health complaint in whom no diagnosis is made (principal); Z79.01 Long term (current) use of anticoagulants
CPT/HCPCS: 99283; 93005